=== PATIENT | female | born 1955 | race Caucasian/White ===

== ENCOUNTER 2019-08-11 07:38 | Outpatient (CLI) | payer MEDICARE, SELFPAY ==
[2019-08-11 08:20] LABS: Hematocrit 39.1 % (37.0-47.0); Hemoglobin 12.5 g/dL (12.0-15.0); Mean Corpuscular Hemoglobin 29.8 pg (26-34); Mean Corpuscular Volume 93.3 fl (80-100); Mean Platelet Volume 10.5 fl (7.4-10.4); Platelet Count Result 172 k/mm3 (150-375); Red Blood Count 4.19 M/mm3 (4.2-5.4); Red Cell Distribution Width 13.5 % (11.5-14.5); White Blood Count 5.4 K/mm3 (4.5-10.0)
[2019-08-11 08:32] LABS: Alanine Aminotransferase 22 U/L (4-35); Albumin Level 4.1 g/dL (3.5-5.1); Alkaline Phosphatase 94 U/L (38-126); Aspartate Amino Transferase 28 U/L (14-36); Bilirubin,Total 0.8 mg/dL (0.2-1.3); Blood Urea Nitrogen 18 mg/dL (7-17); Calcium 8.9 mg/dL (8.4-10.2); Carbon Dioxide 27 mmol/L (22-30); Chloride 100 mmol/L (98-107); Cholesterol 158 mg/dL (0-200); Estimated Glomerular Filt Rate > 60; Glucose 147 mg/dL (65-105); HDL Direct 40 mg/dL; Potassium 4.3 mmol/L (3.4-5.0); Sodium 141 mmol/L (137-145); Triglycerides 179 mg/dL (<150)
[2019-08-11 08:35] LABS: Hemoglobin A1C 6.9 % (<5.7)
[2019-08-11 08:45] LABS: LDL Cholesterol Direct 86 mg/dL
== END 2019-08-11 07:39 | disposition home or self-care (01) ==
PROVIDERS: PCP Family Medicine; Visit Provider Nurse Practitioner Family
DX: E78.5 Hyperlipidemia, unspecified (principal); E11.9 Type 2 diabetes mellitus without complications; I10 Essential (primary) hypertension
CPT/HCPCS: 36415; 80053; 80061; 83036; 85027

== ENCOUNTER 2019-11-24 08:23 | Outpatient (CLI) | payer MEDICARE, SELFPAY ==
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
--- NOTE | ~2019-11-24 | MM_ITS ---
EXAMINATION: MM screening [facility] BI w sharlene HISTORY: Screening mammogram TECHNIQUE: Craniocaudal and mediolateral oblique 3-D tomosynthesis images were obtained and synthetic 2-D images were generated. CAD analysis was submitted and interpreted. COMPARISON: Comparison to multiple prior studies sequentially, with oldest reviewed study dated 09/01. BREAST PARENCHYMAL COMPOSITION: The breasts are almost entirely fatty. FINDINGS: There is no evidence of suspicious mass, calcification, or architectural distortion to sugg est malignancy in either breast. There has been no suspicious interval change. IMPRESSION: 1. No mammographic evidence of malignancy. 2. Recommend routine screening mammography in one year. BI-RADS Category 1: Negative Reviewed, dictated and finalized at location A.
== END 2019-11-24 08:24 | disposition home or self-care (01) ==
LOC: ANHIMG 08:30
PROVIDERS: PCP Family Medicine; Visit Provider Nurse Practitioner Family
DX: Z12.31 Encounter for screening mammogram for malignant neoplasm of breast (principal); Z78.0 Asymptomatic menopausal state; M85.89 Other specified disorders of bone density and structure, multiple sites; M81.0 Age-related osteoporosis without current pathological fracture
CPT/HCPCS: 77063; 77067; 77080

== ENCOUNTER 2019-11-28 00:49 | Outpatient (CLI) | payer MEDICARE, SELFPAY ==
[2019-11-28 17:00] LABS: SARS-CoV-2 RNA PCR Negative
== END 2019-11-28 00:50 | disposition home or self-care (01) ==
LOC: ANHCOVIDDT 00:50
PROVIDERS: PCP Family Medicine; Visit Provider Internal Medicine Gastroenterology
DX: Z20.828 Contact with and (suspected) exposure to other viral communicable diseases (principal); Z01.812 Encounter for preprocedural laboratory examination
CPT/HCPCS: 87635; C9803; U0003

== ENCOUNTER 2019-11-30 01:09 | Day surgery (SDC) | payer MEDICARE, SELFPAY ==
[2019-11-25 14:01] VITALS: BMI 43.0
[2019-11-30 07:00] VITALS: BP 185/101; PULSE 80; RESP 20; TEMP 36.4; O2SAT 97
[2019-11-30] MEDS: LACTATED RINGERS 1,000 ML 150 ML IV CONT (07:06)
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
[2019-11-30 07:11] LABS: Glucose Point of Care 201 (65-105)
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
[2019-11-30 07:57] VITALS: BP 125/58; PULSE 69; RESP 27; O2SAT 98
[2019-11-30 08:03] VITALS: BP 136/63; PULSE 67; RESP 24; O2SAT 96
[2019-11-30 08:13] VITALS: BP 152/73; PULSE 69; RESP 18; O2SAT 97
== END 2019-11-30 08:20 | disposition home or self-care (01) ==
PROVIDERS: PCP Family Medicine; Visit Provider Internal Medicine Gastroenterology
PROC: 0DJD8ZZ Inspection of Lower Intestinal Tract, Via Natural or Artificial Opening Endoscopic (ICD-10-PCS; CPT 45378; principal; 2019-11-30 08:00)
DX: Z12.11 Encounter for screening for malignant neoplasm of colon (principal); K57.30 Diverticulosis of large intestine without perforation or abscess without bleeding; K64.8 Other hemorrhoids; I10 Essential (primary) hypertension; E78.2 Mixed hyperlipidemia; M10.9 Gout, unspecified; K76.0 Fatty (change of) liver, not elsewhere classified; Z79.84 Long term (current) use of oral hypoglycemic drugs; E66.01 Morbid (severe) obesity due to excess calories; Z68.41 Body mass index [BMI] 40.0-44.9, adult
CPT/HCPCS: G0121; J2704; J7120

== ENCOUNTER 2020-03-01 07:39 | Outpatient (CLI) | payer MEDICARE, SELFPAY ==
[2020-03-01 09:02] LABS: Hematocrit 38.8 % (37.0-47.0); Hemoglobin 12.7 g/dL (12.0-15.0); Mean Corpuscular HGB Conc 32.7 g/dl (32-36); Mean Corpuscular Hemoglobin 30.6 pg (26-34); Mean Corpuscular Volume 93.5 fl (80-100); Mean Platelet Volume 10.6 fl (7.4-10.4); Platelet Count Result 187 k/mm3 (150-375); Red Blood Count 4.15 M/mm3 (4.2-5.4); Red Cell Distribution Width 13.5 % (11.5-14.5); White Blood Count 5.8 K/mm3 (4.5-10.0)
[2020-03-01 09:11] LABS: Hemoglobin A1C 6.6 % (<5.7)
[2020-03-01 09:17] LABS: Alanine Aminotransferase 28 U/L (4-35); Albumin Level 4.3 g/dL (3.5-5.1); Alkaline Phosphatase 85 U/L (38-126); Anion Gap 8 mmol/L (8-16); Aspartate Amino Transferase 44 U/L (14-36); Blood Urea Nitrogen 21 mg/dL (7-17); Calcium 9.4 mg/dL (8.4-10.2); Carbon Dioxide 27 mmol/L (22-30); Chloride 104 mmol/L (98-107); Cholesterol 165 mg/dL (0-200); Estimated Glomerular Filt Rate > 60; Glucose 174 mg/dL (65-105); HDL Direct 37 mg/dL; Potassium 4.6 mmol/L (3.4-5.0); Sodium 139 mmol/L (137-145); Triglycerides 200 mg/dL (<150)
[2020-03-01 09:28] LABS: LDL Cholesterol Direct 87 mg/dL
== END 2020-03-01 07:40 | disposition home or self-care (01) ==
LOC: ANHLAB 07:42
PROVIDERS: PCP Family Medicine; Visit Provider Nurse Practitioner Family
DX: E78.5 Hyperlipidemia, unspecified (principal); I10 Essential (primary) hypertension; E11.9 Type 2 diabetes mellitus without complications
CPT/HCPCS: 36415; 80053; 80061; 83036; 85027

== ENCOUNTER 2020-08-17 07:02 | Outpatient (CLI) | payer MEDICARE, SELFPAY ==
[2020-08-17 07:29] LABS: Hematocrit 37.5 % (37.0-47.0); Hemoglobin 12.2 g/dL (12.0-15.0); Mean Corpuscular HGB Conc 32.5 g/dl (32-36); Mean Corpuscular Hemoglobin 31.1 pg (26-34); Mean Corpuscular Volume 95.7 fl (80-100); Mean Platelet Volume 9.8 fl (7.4-10.4); Platelet Count Result 159 k/mm3 (150-375); Red Blood Count 3.92 M/mm3 (4.2-5.4); Red Cell Distribution Width 13.2 % (11.5-14.5); White Blood Count 6.1 K/mm3 (4.5-10.0)
[2020-08-17 07:41] LABS: Potassium 4.6 mmol/L (3.4-5.0)
[2020-08-17 07:51] LABS: Alanine Aminotransferase 33 U/L (4-35); Albumin Level 4.2 g/dL (3.5-5.1); Alkaline Phosphatase 87 U/L (38-126); Anion Gap 4 mmol/L (8-16); Aspartate Amino Transferase 55 U/L (14-36); Bilirubin,Total 1.1 mg/dL (0.2-1.3); Blood Urea Nitrogen 21 mg/dL (7-17); Calcium 9.4 mg/dL (8.4-10.2); Carbon Dioxide 32 mmol/L (22-30); Chloride 103 mmol/L (98-107); Cholesterol 171 mg/dL (0-200); Estimated Glomerular Filt Rate > 60; Glucose 192 mg/dL (65-105); HDL Direct 41 mg/dL; Sodium 139 mmol/L (137-145); Triglycerides 215 mg/dL (<150)
[2020-08-17 07:53] LABS: LDL Cholesterol Direct 92 mg/dL
== END 2020-08-17 07:03 | disposition home or self-care (01) ==
PROVIDERS: PCP Family Medicine; Visit Provider Nurse Practitioner Family
DX: E11.9 Type 2 diabetes mellitus without complications (principal); E78.2 Mixed hyperlipidemia; I10 Essential (primary) hypertension
CPT/HCPCS: 36415; 80053; 80061; 83036; 85027

== ENCOUNTER 2020-11-26 08:30 | Outpatient (CLI) | payer MEDICARE, SELFPAY ==
--- NOTE | ~2020-11-26 | MM_ITS ---
EXAMINATION: MM screening [facility] BI w sharlene HISTORY: Screening mammogram TECHNIQUE: Craniocaudal and mediolateral oblique 3-D tomosynthesis images were obtained and synthetic 2-D images were generated. CAD analysis was submitted and interpreted. COMPARISON: 11/24/2019, 09/04/2017, 09/02/2016 BREAST PARENCHYMAL COMPOSITION: The breasts are almost entirely fatty. FINDINGS: There is no evidence of suspicious mass, calcification, or architectural distortion to sugg est malignancy in either breast. There has been no suspicious interval change. IMPRESSION: 1. No mammographic evidence of malignancy. 2. Recommend routine screening mammography in one year. BI-RADS Category 1: Negative Reviewed, dictated and finalized at location A.
== END 2020-11-26 08:31 | disposition home or self-care (01) ==
LOC: ANHIMG 08:32
PROVIDERS: PCP Family Medicine; Visit Provider Nurse Practitioner Family
DX: Z12.31 Encounter for screening mammogram for malignant neoplasm of breast (principal)
CPT/HCPCS: 77063; 77067

== ENCOUNTER 2021-02-22 07:14 | Outpatient (CLI) | payer MEDICARE, SELFPAY ==
[2021-02-22 08:18] LABS: Hematocrit 37.9 % (37.0-47.0); Hemoglobin 12.1 g/dL (12.0-15.0); Mean Corpuscular HGB Conc 31.9 g/dl (32-36); Mean Corpuscular Volume 97.2 fl (80-100); Mean Platelet Volume 10.5 fl (7.4-10.4); Platelet Count Result 158 k/mm3 (150-375); Red Cell Distribution Width 13.3 % (11.5-14.5); White Blood Count 5.4 K/mm3 (4.5-10.0)
[2021-02-22 08:27] LABS: Alanine Aminotransferase 53 U/L (4-35); Albumin Level 4.1 g/dL (3.5-5.1); Alkaline Phosphatase 102 U/L (38-126); Anion Gap 8 mmol/L (8-16); Aspartate Amino Transferase 74 U/L (14-36); Blood Urea Nitrogen 18 mg/dL (7-17); Calcium 9.1 mg/dL (8.4-10.2); Carbon Dioxide 27 mmol/L (22-30); Chloride 104 mmol/L (98-107); Cholesterol 168 mg/dL (0-200); Estimated Glomerular Filt Rate > 60; Glucose 189 mg/dL (65-110); HDL Direct 40 mg/dL; Potassium 4.5 mmol/L (3.4-5.0); Sodium 139 mmol/L (137-145); Triglycerides 145 mg/dL (<150)
[2021-02-22 08:38] LABS: LDL Cholesterol Direct 86 mg/dL
[2021-02-22 09:30] LABS: Hemoglobin A1C 8.2 % (<5.7)
== END 2021-02-22 07:15 | disposition home or self-care (01) ==
PROVIDERS: PCP Family Medicine; Visit Provider Nurse Practitioner Family
DX: I10 Essential (primary) hypertension (principal); E78.5 Hyperlipidemia, unspecified; E11.9 Type 2 diabetes mellitus without complications
CPT/HCPCS: 36415; 80053; 80061; 83036; 85027

== ENCOUNTER 2021-08-22 07:00 | Outpatient (CLI) | payer MEDICARE, SELFPAY ==
[2021-08-22 07:23] LABS: Basophils Percent Auto 0.7 % (0.2-1.2); Eosinophils Absolute Auto 0.3 K/mm3 (0-0.3); Hematocrit 38.7 % (37.0-47.0); Hemoglobin 12.3 g/dL (12.0-15.0); Immature Granulocyte Absolute 0.02 K/mm3 (0.00-0.031); Immature Granulocyte Percent A 0.4 % (0-0.5); Lymphocytes Absolute Auto 1.32 K/mm3 (0.9-3.2); Lymphocytes Percent Auto 23.4 % (18.3-44.2); Mean Corpuscular HGB Conc 31.8 g/dl (32-36); Mean Corpuscular Volume 97.5 fl (80-100); Mean Platelet Volume 10.5 fl (7.4-10.4); Monocytes Absolute Auto 0.5 K/mm3 (0.1-0.6); Monocytes Percent Auto 8.3 % (2.6-8.5); Neutrophils Absolute Auto 3.5 K/mm3 (1.3-6.7); Neutrophils Percent Auto 62.2 % (45.5-73.1); Platelet Count Result 158 k/mm3 (150-375); Red Blood Count 3.97 M/mm3 (4.2-5.4); Red Cell Distribution Width 13.7 % (11.5-14.5); White Blood Count 5.6 K/mm3 (4.5-10.0)
[2021-08-22 07:32] LABS: Hemoglobin A1C 8.4 % (<5.7)
[2021-08-22 07:35] LABS: Alanine Aminotransferase 44 U/L (4-35); Albumin Level 4.2 g/dL (3.5-5.1); Alkaline Phosphatase 108 U/L (38-126); Anion Gap 6 mmol/L (8-16); Aspartate Amino Transferase 70 U/L (14-36); Bilirubin,Total 1.1 mg/dL (0.2-1.3); Blood Urea Nitrogen 21 mg/dL (7-17); Calcium 8.9 mg/dL (8.4-10.2); Carbon Dioxide 29 mmol/L (22-30); Chloride 104 mmol/L (98-107); Cholesterol 176 mg/dL (0-200); Estimated Glomerular Filt Rate > 60; Glucose 226 mg/dL (65-110); HDL Direct 39 mg/dL; Potassium 5.1 mmol/L (3.4-5.0); Sodium 139 mmol/L (137-145); Triglycerides 183 mg/dL (<150)
[2021-08-22 07:46] LABS: LDL Cholesterol Direct 97 mg/dL
[2021-08-22 08:18] LABS: Vitamin D 25 Hydroxy 62.7 ng/mL
== END 2021-08-22 07:01 | disposition home or self-care (01) ==
LOC: ANHLAB 07:02
PROVIDERS: PCP Family Medicine; Visit Provider Nurse Practitioner Family
DX: E55.9 Vitamin D deficiency, unspecified (principal); I10 Essential (primary) hypertension; E78.5 Hyperlipidemia, unspecified; E11.9 Type 2 diabetes mellitus without complications
CPT/HCPCS: 36415; 80053; 80061; 82306; 83036; 84443; 85025

== ENCOUNTER 2021-11-01 11:16 | Outpatient (CLI) | payer MEDICARE, SELFPAY ==
--- NOTE | ~2021-11-01 | CT_ITS ---
EXAMINATION: CT lung screening DATE: 11/01/2021 11:36 INDICATION: Personal history of tobacco dependence TECHNIQUE: Computed tomography (CT) of the chest was performed without intravenous contrast. The dose -length product was 297.72 mGy-cm. Automated exposure control and iterative reconstruction technique were employed. COMPARISON: None FINDINGS: There is atherosclerosis of the aorta and coronary arteries. Heart size normal. No signific ant pleural or pericardial effusion. No thoracic lymphadenopathy. No endobronchial lesions. There are calcified granulomas. No focal airspace consolidation. Mild emphysema. No pneumothorax. There is a 3 mm fissural nodule on the left. Mild thoracic spondylosis. IMPRESSION: 1. Lung-RADS category 2: Benign appearance or behavior. Continue annual screening with noncontrast lo w-dose chest CT in 12 months. Reviewed, dictated and finalized at location B. IMPRESSION: 1. Lung-RADS category 2: Benign appearance or behavior. Continue annual screeni ng with noncontrast low-dose chest CT in 12 months.
== END 2021-11-01 11:17 | disposition home or self-care (01) ==
PROVIDERS: PCP Family Medicine; Visit Provider Nurse Practitioner Family
DX: Z12.2 Encounter for screening for malignant neoplasm of respiratory organs (principal); Z87.891 Personal history of nicotine dependence
CPT/HCPCS: 71271

== ENCOUNTER 2021-11-05 14:54 | Outpatient (CLI) | payer MEDICARE, SELFPAY ==
--- NOTE | ~2021-11-05 | XR_ITS ---
XR hip RT 2V w AP pelvis 11/05/2021 15:17 Indication: Right hip pain Procedure: 3 views right hip including AP pelvis Comparison: No prior studies for comparison. Findings: Pelvic rings are intact. Sacral foramen are symmetric. No fracture, subluxation or dislocat ion. No significant soft tissue abnormality. No foreign bodies are identified. Mild lumbar spondylosi s. Impression: 1: No acute bone or joint abnormality. Reviewed, dictated and finalized at location A. Impression: 1: No acute bone or joint abnormality.
== END 2021-11-05 14:55 | disposition home or self-care (01) ==
LOC: ANHIMG 15:02
PROVIDERS: PCP Family Medicine; Visit Provider Nurse Practitioner Family
DX: M25.551 Pain in right hip (principal)
CPT/HCPCS: 73502

== ENCOUNTER → 2021-12-18 08:21 | Outpatient (CLI) | payer MEDICARE, SELFPAY ==
--- NOTE | ~2021-12-18 | MR_ITS ---
EXAMINATION: MR hip RT wo con DATE: 12/18/2021 09:15 INDICATION: Right hip pain TECHNIQUE: Magnetic resonance imaging (MRI) of the right hip was performed without intravenous contr ast. Sequences included full-field axial PD-weighted FS FSE and T1-weighted FSE, coronal of the pelvi s with PD-weighted FS FSE, T2-weighted FSE and T1-weighted FSE, small field of view of the right hip with axial PD-weighted FS FSE, sagittal PD-weighted FS FSE, coronal PD-weighted FS FSE and coronal T2 weighted FSE. Additional radial T1-weighted FGR oriented orthogonal to the acetabular rim were obt ained for evaluation of the labrum. COMPARISON: Radiographs dated 11/05/2021 FINDINGS: Bones/labrum/cartilage: Alignment is normal. No fracture, avascular necrosis or pathologic marrow replacing process. There a ppears to be both anterior acetabular over coverage at both hips predisposing towards pincer-type fem oral acetabular impingement as well as mild decreased right-sided anterosuperior femoral head neck of fset which compares postoperative cam-type femoral acetabular impingement. Mild cystic change at the right anterosuperior femoral head neck junction suggestive of impingement. There is diffuse amorphous mild increased signal throughout the right acetabular labrum consistent with generation. Mild right hip osteoarthritis with mild nonuniform joint space narrowing resulting from partial thickness cartil age loss most prominent posteriorly and superiorly. Small focus of respiratory edema-like signal mauro ge at the posterior superomedial aspect of the right femoral head and at the posterior right acetabul um. Fluid: Asymmetric very small right hip joint effusion with physiologic amount fluid at the left hip. No othe r abnormal fluid collections. Soft tissues: Normal and symmetric muscle bulk and signal in the pelvis and visualized proximal thighs. The iliopso as, gluteal and proximal hamstring tendons are normal. Mild to moderate diverticulosis along the sigm oid colon without adjacent from 3 change to suggest diverticulitis. Normal appendix Limited evaluatio n of visceral organs of the pelvis is otherwise unremarkable. No pathologically enlarged pelvic/ingu inal lymphadenopathy. IMPRESSION: 1. Mild right hip osteoarthritis with small regions of high-grade chondromalacia at the humeral head and acetabulum and very small likely reactive right hip joint effusion. 2. 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 Reviewed, dictated and finalized at location A. IMPRESSION: 1. Mild right hip osteoarthritis with small regions of high-grade chondromalaci a at the humeral head and acetabulum and very small likely reactive right hip j oint effusion. 2. 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
== END ==
PROVIDERS: PCP Family Medicine; Visit Provider Nurse Practitioner Family
DX: M16.11 Unilateral primary osteoarthritis, right hip (principal)
CPT/HCPCS: 73721

== ENCOUNTER 2021-12-26 09:21 | Outpatient (CLI) | payer MEDICARE, SELFPAY ==
--- NOTE | ~2021-12-26 | MM_ITS ---
EXAMINATION: MM screening [facility] BI w sharlene HISTORY: Screening mammogram TECHNIQUE: Craniocaudal and mediolateral oblique 3-D tomosynthesis images were obtained and synthetic 2-D images were generated. CAD analysis was submitted and interpreted. COMPARISON: 11/26/2020, 11/24/2019, 09/04/2017 BREAST PARENCHYMAL COMPOSITION: The breasts are almost entirely fatty. FINDINGS: There is no suspicious mass, calcification, or architectural distortion to suggest malignan cy in either breast. There has been no suspicious interval change. IMPRESSION: 1. No mammographic evidence of malignancy. 2. Recommend routine screening mammography in one year. BI-RADS Category 1: Negative Reviewed, dictated and finalized at location A.
== END 2021-12-26 09:22 | disposition home or self-care (01) ==
PROVIDERS: PCP Family Medicine; Visit Provider Nurse Practitioner Family
DX: Z12.31 Encounter for screening mammogram for malignant neoplasm of breast (principal)
CPT/HCPCS: 77063; 77067

== ENCOUNTER 2022-01-01 10:45 | Outpatient (CLI) | payer MEDICARE, SELFPAY ==
--- NOTE | ~2022-01-01 | XR_ITS ---
EXAMINATION: XR lg joint inject/asp w image DATE: 01/01/2022 11:41 INDICATION: Right hip arthritis TECHNIQUE: A time-out was performed to verify the patient's name, date of , and procedure to b e performed. The procedure including the risks, benefits, and alternatives was discussed with the pat ient. Risks discussed included bleeding and infection. The patient understood the risks and agreed to proceed. The skin overlying the right hip joint was prepped and draped in usual sterile fashion. A nesthetic was administered with 1% lidocaine subcutaneously. A 20 G needle was advanced under fluoro scopic guidance into the joint. Injection of a small amount of gas confirmed intra-articular positio n of the needle. Subsequently, injectate consisting of 3 mL of a 2:1 mixture of 0.5% Marcaine and 80 mg/mL Depo-Medrol for a total dosage of 80 mg Depo-Medrol was instilled. Washout of contrast was see n confirming intra-articular administration. The needle was removed and the entry site was cleaned an d dressed. There were no immediate complications. Fluoroscopy exposure time was 0.1 minutes. The tot al number of images was 1. FINDINGS: Real-time fluoroscopy demonstrates the needle in the right hip joint. Patient's pain prior to procedure:02/22. Patient's pain following the procedure: 07/25. IMPRESSION: 1. Successful right hip joint injection of local anesthetic and steroid with decrease in the patient' s presenting pain. Reviewed, dictated and finalized at location A. IMPRESSION: 1. Successful right hip joint injection of local anesthetic and steroid with de crease in the patient's presenting pain.
== END 2022-01-01 10:46 | disposition home or self-care (01) ==
PROVIDERS: PCP Family Medicine; Visit Provider Nurse Practitioner Family
DX: M25.551 Pain in right hip (principal)
CPT/HCPCS: 20610; 77002; J1040

== ENCOUNTER 2022-03-03 14:55 | Outpatient (CLI) | payer MEDICARE, SELFPAY ==
--- NOTE | ~2022-03-03 | DEXA_ITS ---
Bone Density Report Name: ONELIA RAMOS Age: 66 Sex: Female Ethnicity: White Date of : 1955 Indication: monitoring treatment; height loss; postmenopausal Referring Provider: HENRY STONE Study: Bone densitometry was performed. Exam Date: March 03, 2022 Accession number: [id number] Bone Density: Region BMD T-score Z-score Classification AP Spine(L1-L4) 1.190 1.3 3.2 Normal Femoral Neck (Left) 0.729 -1.1 0.6 Osteopenia Total Hip (Left) 0.948 0.0 1.4 Normal Femoral Neck (Right) 0.758 -0.8 0.8 Normal Total Hip (Right) 0.944 0.0 1.4 Normal Total Hip Mean 0.946 0.0 1.4 Normal World Health Organization criteria for BMD impression classify patients as: Normal (T-score at or above -1.0), Osteopenia (T-score between -1.0 and -2.5), or Osteoporosis (T-score at or below -2.5). 10-year Fracture Risk: FRAX not reported because: Treated for osteoporosis Previous Exams: Region Exam Age BMD T-score BMD Change BMD Change Date g/cm2 vs Baseline vs Previous AP Spine (L1-L4) 03/03/2022 66 1.190 1.3 0.072 (6.5%)* 0.072 (6.5%)* 11/24/2019 64 1.118 0.6 Total Hip(Left) 03/03/2022 66 0.948 0.0 0.046 (5.1%)* 0.046 (5.1%)* 11/24/2019 64 0.902 -0.3 Total Hip(Right) 03/03/2022 66 0.944 0.0 0.023 (2.5%) 0.023 (2.5%) 11/24/2019 64 0.921 -0.2 *Denotes significance at 95% confidence level, LSC for AP Spine = 0.022 g/cm2, LSC for Total Hip = 0.027 g/cm2 Clinical Information Provided by Patient: Is being treated for osteoporosis Has used the following medications: Fosamax (i.e. alendronate), Calcium Patient maximum height was 64 Menopause Age: 41 No regular weight bearing exercise Drinks caffeinated beverages Onset of menses at age 10 Number of children 0 Impression: The patient has low bone mass, based on the Left Femoral Neck T-score. No significant bone loss was observed. Discussion: PATIENT UNDER TREATMENT WITH NO SIGNIFICANT BMD LOSS SINCE LAST EXAM. In an untreated patient, BMD typically declines with age. A lack of decline or gain is usually a sign that treatment is efficacious and fracture risk is reduced. It is important to ask patients whether they are taking their medications and to encourage continued and appropriate compliance with their osteoporosis therapies to reduce fracture risk. It is also important to review their risk factors and encourage appropriate calcium and vitamin D intakes, exercise
== END 2022-03-03 14:56 | disposition home or self-care (01) ==
PROVIDERS: PCP Family Medicine; Visit Provider Nurse Practitioner Family
DX: Z78.0 Asymptomatic menopausal state (principal); M85.852 Other specified disorders of bone density and structure, left thigh
CPT/HCPCS: 77080

== ENCOUNTER 2022-03-05 07:52 | Outpatient (CLI) | payer MEDICARE, SELFPAY ==
[2022-03-05 08:24] LABS: Basophils Absolute Auto 0.1 K/mm3 (0.0-0.1); Basophils Percent Auto 0.9 % (0.2-1.2); Eosinophils Absolute Auto 0.3 K/mm3 (0-0.3); Eosinophils Percent Auto 4.3 % (0-4.4); Hematocrit 36.1 % (37.0-47.0); Hemoglobin 11.6 g/dL (12.0-15.0); Immature Granulocyte Absolute 0.05 K/mm3 (0.00-0.031); Immature Granulocyte Percent A 0.9 % (0-0.5); Lymphocytes Absolute Auto 1.28 K/mm3 (0.9-3.2); Lymphocytes Percent Auto 22.1 % (18.3-44.2); Mean Corpuscular HGB Conc 32.1 g/dl (32-36); Mean Corpuscular Hemoglobin 31.4 pg (26-34); Mean Corpuscular Volume 97.8 fl (80-100); Mean Platelet Volume 10.2 fl (7.4-10.4); Monocytes Absolute Auto 0.4 K/mm3 (0.1-0.6); Monocytes Percent Auto 7.4 % (2.6-8.5); Neutrophils Absolute Auto 3.7 K/mm3 (1.3-6.7); Neutrophils Percent Auto 64.4 % (45.5-73.1); Platelet Count Result 161 k/mm3 (150-375); Red Blood Count 3.69 M/mm3 (4.2-5.4); Red Cell Distribution Width 13.6 % (11.5-14.5); White Blood Count 5.8 K/mm3 (4.5-10.0)
[2022-03-05 08:33] LABS: Alanine Aminotransferase 29 U/L (6-35); Alkaline Phosphatase 103 U/L (38-126); Anion Gap 11 mmol/L (8-16); Aspartate Amino Transferase 46 U/L (14-36); Bilirubin,Total 1.4 mg/dL (0.2-1.3); Blood Urea Nitrogen 19 mg/dL (7-17); Carbon Dioxide 24 mmol/L (22-30); Chloride 105 mmol/L (98-107); Cholesterol 154 mg/dL (0-200); Estimated Glomerular Filt Rate 55; Glucose 201 mg/dL (65-110); HDL Direct 36 mg/dL; Potassium 4.9 mmol/L (3.4-5.0); Sodium 140 mmol/L (137-145); Triglycerides 169 mg/dL (<150)
[2022-03-05 08:35] LABS: Hemoglobin A1C 7.2 % (<5.7)
[2022-03-05 08:44] LABS: LDL Cholesterol Direct 92 mg/dL
[2022-03-05 09:20] LABS: Creatinine Urine 110.8 mg/dL
[2022-03-05 09:29] LABS: MALB Creatinine Ratio 22.6 mg/g (0-30)
== END 2022-03-05 07:53 | disposition home or self-care (01) ==
PROVIDERS: PCP Family Medicine; Visit Provider Nurse Practitioner Family
DX: E78.5 Hyperlipidemia, unspecified (principal); E03.9 Hypothyroidism, unspecified; E11.9 Type 2 diabetes mellitus without complications; I10 Essential (primary) hypertension
CPT/HCPCS: 36415; 80053; 80061; 82043; 83036; 84443; 85025

== ENCOUNTER 2022-08-28 07:25 | Outpatient (CLI) | payer MEDICARE, SELFPAY ==
[2022-08-28 07:42] LABS: Basophils Percent Auto 0.7 % (0.2-1.2); Eosinophils Absolute Auto 0.4 K/mm3 (0-0.3); Eosinophils Percent Auto 6.4 % (0-4.4); Hematocrit 35.1 % (37.0-47.0); Hemoglobin 11.8 g/dL (12.0-15.0); Immature Granulocyte Absolute 0.02 K/mm3 (0.00-0.031); Immature Granulocyte Percent A 0.4 % (0-0.5); Lymphocytes Absolute Auto 1.35 K/mm3 (0.9-3.2); Mean Corpuscular HGB Conc 33.6 g/dl (32-36); Mean Corpuscular Hemoglobin 31.3 pg (26-34); Mean Corpuscular Volume 93.1 fl (80-100); Mean Platelet Volume 9.9 fl (7.4-10.4); Monocytes Absolute Auto 0.5 K/mm3 (0.1-0.6); Monocytes Percent Auto 8.2 % (2.6-8.5); Neutrophils Absolute Auto 3.4 K/mm3 (1.3-6.7); Neutrophils Percent Auto 60.3 % (45.5-73.1); Platelet Count Result 161 k/mm3 (150-375); Red Blood Count 3.77 M/mm3 (4.2-5.4); Red Cell Distribution Width 13.8 % (11.5-14.5); White Blood Count 5.6 K/mm3 (4.5-10.0)
[2022-08-28 07:52] LABS: Alanine Aminotransferase 22 U/L (6-35); Albumin Level 4.2 g/dL (3.5-5.1); Alkaline Phosphatase 98 U/L (38-126); Anion Gap 6 mmol/L (8-16); Aspartate Amino Transferase 35 U/L (14-36); Bilirubin,Total 1.1 mg/dL (0.2-1.3); Blood Urea Nitrogen 22 mg/dL (7-17); Calcium 9.3 mg/dL (8.4-10.2); Carbon Dioxide 28 mmol/L (22-30); Chloride 105 mmol/L (98-107); Cholesterol 155 mg/dL (0-200); Estimated Glomerular Filt Rate > 60; Glucose 168 mg/dL (65-110); HDL Direct 34 mg/dL; Potassium 4.8 mmol/L (3.4-5.0); Sodium 139 mmol/L (137-145); Triglycerides 157 mg/dL (<150)
[2022-08-28 08:02] LABS: LDL Cholesterol Direct 87 mg/dL
[2022-08-28 08:47] LABS: Hemoglobin A1C 6.8 % (<5.7)
[2022-08-28 08:49] LABS: Creatinine Urine 78.1 mg/dL
[2022-08-28 08:54] LABS: MALB Creatinine Ratio 12.5 mg/g (0-30); Microalbumin Urine Random 9.8 mg/L (0-16.7)
== END 2022-08-28 07:26 | disposition home or self-care (01) ==
PROVIDERS: PCP Family Medicine; Visit Provider Nurse Practitioner Family
DX: I10 Essential (primary) hypertension (principal); E11.9 Type 2 diabetes mellitus without complications; E78.5 Hyperlipidemia, unspecified; E03.9 Hypothyroidism, unspecified; E55.9 Vitamin D deficiency, unspecified
CPT/HCPCS: 36415; 80053; 80061; 82043; 82306; 83036; 84443; 85025

== ENCOUNTER 2023-03-13 13:31 | Outpatient (CLI) | payer MEDICARE, SELFPAY ==
--- NOTE | ~2023-03-13 | MM_ITS ---
EXAMINATION: MM screening [facility] BI w sharlene HISTORY: Screening mammogram TECHNIQUE: Craniocaudal and mediolateral oblique 3-D tomosynthesis images were obtained and synthetic 2-D images were generated. CAD analysis was submitted and interpreted. COMPARISON: 12/26/2021, 11/26/2020, 11/24/2019 bilateral screening mammogram examinations BREAST PARENCHYMAL COMPOSITION: The breasts are almost entirely fatty. FINDINGS: There is no evidence of suspicious mass, calcification, or architectural distortion to sugg est malignancy in either breast. There has been no suspicious interval change. IMPRESSION: 1. No mammographic evidence of malignancy. 2. Recommend routine screening mammography in one year. BI-RADS Category 1: Negative Reviewed, dictated and finalized at location A.
== END 2023-03-13 13:32 | disposition home or self-care (01) ==
LOC: ANHIMG 13:34
PROVIDERS: PCP Family Medicine; Visit Provider Nurse Practitioner Family
DX: Z12.31 Encounter for screening mammogram for malignant neoplasm of breast (principal)
CPT/HCPCS: 77063; 77067

== ENCOUNTER 2023-04-20 15:04 | Outpatient (CLI) | payer MEDICARE, SELFPAY ==
--- NOTE | 2023-04-20 16:35 | ECG_ITS ---
Measurements Intervals [place] Rate: 86 P: IN: 0 QRS: -15 QRSD: 89 T: 41 QT: 358 QTc: 429 Interpretive Statements ATRIAL FIBRILLATION ABNORMAL ECG NO PREVIOUS ECG AVAILABLE FOR COMPARISON Electronically Signed On 04-20-2023 16:49:34 OPERATIONS PROGRAM MANAGER by Rolando Blanchard D.O.
[2023-04-20 17:03] LABS: Basophils Absolute Auto 0.1 K/mm3 (0.0-0.1); Basophils Percent Auto 0.9 % (0.2-1.2); Eosinophils Absolute Auto 0.9 K/mm3 (0-0.3); Eosinophils Percent Auto 13.7 % (0-4.4); Hematocrit 37.1 % (37.0-47.0); Hemoglobin 11.7 g/dL (12.0-15.0); Immature Granulocyte Absolute 0.02 K/mm3 (0.00-0.031); Immature Granulocyte Percent A 0.3 % (0-0.5); Lymphocytes Absolute Auto 1.34 K/mm3 (0.9-3.2); Lymphocytes Percent Auto 20.2 % (18.3-44.2); Mean Corpuscular HGB Conc 31.5 g/dl (32-36); Mean Corpuscular Volume 98.4 fl (80-100); Mean Platelet Volume 10.7 fl (7.4-10.4); Monocytes Absolute Auto 0.6 K/mm3 (0.1-0.6); Monocytes Percent Auto 8.3 % (2.6-8.5); Neutrophils Absolute Auto 3.7 K/mm3 (1.3-6.7); Neutrophils Percent Auto 56.6 % (45.5-73.1); Platelet Count Result 168 k/mm3 (150-375); Red Blood Count 3.77 M/mm3 (4.2-5.4); Red Cell Distribution Width 14.5 % (11.5-14.5); White Blood Count 6.6 K/mm3 (4.5-10.0)
[2023-04-20 17:18] LABS: Anion Gap 8 mmol/L (8-16); Blood Urea Nitrogen 27 mg/dL (7-17); Calcium 9.5 mg/dL (8.4-10.2); Carbon Dioxide 26 mmol/L (22-30); Chloride 105 mmol/L (98-107); Estimated Glomerular Filt Rate 55; Glucose 147 mg/dL (65-110); Potassium 4.6 mmol/L (3.4-5.0); Sodium 139 mmol/L (137-145)
[2023-04-20 17:29] LABS: Appearance Urine Clear (Clear); Bacteria Urine None Seen /hpf; Bilirubin Urine Negative (Negative); Blood Urine Negative (Negative); Color Urine Yellow (Yellow); Glucose Urine UA Negative (Negative); Ketones Urine Negative (Negative); Leukocyte Esterase Ur 2+ LEU/UL (Negative); Need Manual Microscopic Reviewed; Nitrate Urine Negative (Negative); Non Pathogenic Casts 0-2; Protein Urine Negative (Negative); Squamous Epithelial Cell Urine None seen /hpf (Few); pH Urine 5.5 (5.0-9.0)
[2023-04-20 17:30] LABS: Add Urine Microscopic? YES
[2023-04-20 22:39] LABS: Hemoglobin A1C 6.9 % (<5.7)
== END 2023-04-20 15:05 | disposition home or self-care (01) ==
PROVIDERS: PCP Family Medicine; Visit Provider Nurse Practitioner Family
DX: E11.9 Type 2 diabetes mellitus without complications (principal); E78.2 Mixed hyperlipidemia; I10 Essential (primary) hypertension; M1A.9XX0 Chronic gout, unspecified, without tophus (tophi); M81.0 Age-related osteoporosis without current pathological fracture; R53.83 Other fatigue; M16.9 Osteoarthritis of hip, unspecified; K76.0 Fatty (change of) liver, not elsewhere classified
CPT/HCPCS: 36415; 80048; 81001; 83036; 85025; 87086; 87088; 93005

== ENCOUNTER 2023-07-01 09:50 | Outpatient (CLI) | payer MEDICARE, SELFPAY ==
[2023-07-01 11:08] LABS: Basophils Absolute Auto 0.1 K/mm3 (0.0-0.1); Basophils Percent Auto 0.8 % (0.2-1.2); Eosinophils Absolute Auto 0.6 K/mm3 (0-0.3); Eosinophils Percent Auto 7.9 % (0-4.4); Hematocrit 39.2 % (37.0-47.0); Immature Granulocyte Absolute 0.03 K/mm3 (0.00-0.031); Immature Granulocyte Percent A 0.4 % (0-0.5); Lymphocytes Absolute Auto 1.25 K/mm3 (0.9-3.2); Lymphocytes Percent Auto 17.3 % (18.3-44.2); Mean Corpuscular HGB Conc 30.6 g/dl (32-36); Mean Platelet Volume 9.9 fl (7.4-10.4); Monocytes Absolute Auto 0.5 K/mm3 (0.1-0.6); Monocytes Percent Auto 6.8 % (2.6-8.5); Neutrophils Absolute Auto 4.8 K/mm3 (1.3-6.7); Neutrophils Percent Auto 66.8 % (45.5-73.1); Platelet Count Result 191 k/mm3 (150-375); White Blood Count 7.2 K/mm3 (4.5-10.0)
[2023-07-01 11:13] LABS: Appearance Urine Clear (Clear); Bacteria Urine None Seen /hpf; Bilirubin Urine Negative (Negative); Blood Urine Negative (Negative); Color Urine Yellow (Yellow); Glucose Urine UA Negative (Negative); Ketones Urine Negative (Negative); Leukocyte Esterase Ur Trace LEU/UL (Negative); Nitrate Urine Negative (Negative); Non Pathogenic Casts 0-2; Protein Urine Negative (Negative); RBC Urine 0-2 /hpf (0-2); Specific Grav Ur 1.008 (1.001-1.035); Squamous Epithelial Cell Urine None seen /hpf (Few); WBC Urine 0-5 /hpf; pH Urine 5.5 (5.0-9.0)
[2023-07-01 11:19] LABS: Urine Cotinine NEGATIVE
[2023-07-01 11:21] LABS: Add Urine Microscopic? YES
[2023-07-01 11:27] LABS: INR 1.4
[2023-07-01 11:28] LABS: Partial Thromboplastin Time 59.3 SECONDS (22.3-36.8)
[2023-07-01 11:29] LABS: Albumin Level 4.7 g/dL (3.5-5.1); Anion Gap 9 mmol/L (8-16); Blood Urea Nitrogen 20 mg/dL (7-17); Calcium 9.8 mg/dL (8.4-10.2); Carbon Dioxide 29 mmol/L (22-30); Chloride 102 mmol/L (98-107); Estimated Glomerular Filt Rate > 60; Glucose 104 mg/dL (65-110); Potassium 4.5 mmol/L (3.4-5.0); Sodium 140 mmol/L (137-145)
[2023-07-01 12:35] LABS: MRSA (PCR) NOT DETECTED (NOT DETECTE)
== END 2023-07-01 09:51 | disposition home or self-care (01) ==
LOC: ANHSURGERY 09:53
PROVIDERS: PCP Family Medicine; Visit Provider Orthopaedic Surgery
DX: Z01.818 Encounter for other preprocedural examination (principal); M16.9 Osteoarthritis of hip, unspecified
CPT/HCPCS: 80048; 80307; 81001; 82040; 85025; 85610; 85730; 87641

== ENCOUNTER 2023-07-15 00:41 | Day surgery (SDC) | payer MEDICARE, SELFPAY ==
--- NOTE | 2023-07-01 09:37 | PC.NURSE ---
Addendum entered by Norma Napier RN 07/01/23 10:51: PT AWARE SHE CAN USE HER INHALER DOS IF NEEDED Original Note: PRE-OP INSTRUCTIONS, PLEASE READ CAREFULLY Report to the Outpatient Waiting Room, entrance under the green pavilion located off [facility], at time _0600_ on date _07/15/23_. Planned Procedure Time: _0730_. PACK A SMALL OVERNIGHT BAG AND LEAVE IN THE CAR ALONG WITH YOUR WALKER Time changes happen often and if your time is changed the preop area will call you the afternoon before. - You and your visitor will be asked to self-screen and do not enter if you have any COVID symptoms. - A mask is optional within the hospital at this time. -VISITING HOURS 8AM-8PM Patients may have clear liquids (water, carbonated beverages, clear teas, apple juice) until 3 hours prior to surgery (0430 AM) with a maximum of 20 ounces. - No food from midnight until time of surgery Take the following medications with a SIP of water the morning of surgery: _ATENOLOL, & TYLENOL IF NEEDED_ DO NOT STOP ANY OF YOUR OTHER PRESCRIPTION MEDICATIONS PRIOR TO SURGERY ?EXCEPT THE FOLLOWING Medications to discontinue per DR. NUNEZ - _MELOXICAM, XARELTO (RIVAROXABAN) INSTRUCTED, Date to take last dose CALL DR. NUNEZ'S OFFICE FOR INSTRUCTIONS _ Medications to discontinue per ANESTHESIA - _MULTIVITAMIN & SUPPLEMENTS 3 DAYS PRIOR TO SURGERY, Date to take last dose 07/11/23_ Please no make-up, nail italian, hairspray, perfume, deodorant, or body powder the day of surgery. No jewelry (including any body piercings) or valuables the day of surgery, leave them at home. Please take a shower or bath the night before, or the morning of, surgery with an antibacterial soap. Wear comfortable, loose fitting clothing. - Jewelry must be removed prior to entering the operating room. Rings and piercings that are not removed may be cut off. - The hospital will not accept responsibility for valuables. - Please leave all valuables, including medications, at home the day of surgery. If you are going home after surgery, a licensed shuttle bus driver must drive you home. - NO public transportation without another adult if you receive anesthesia. - We recommend that an adult stay with you for 24 hours following discharge. - We also recommend that you do not drive, make important decision, drink alcoholic beverages, or take any drugs that were not prescribed by your health care provider for at least 24 hours after your discharge time. Follow any additional instructions given to you from your surgeon. If you or anyone in your household have experienced Covid symptoms in the past week, please notify your surgeon or the nurse liaison at the phone number below for possible testing. Instructions given to _PATIENT_and asked if any additional questions and then verbalized understanding. Patient advised to call surgeon office or pre surgery nurse liaison [phone] if any additional questions.
[2023-07-01 10:08] VITALS: BP 176/72; PULSE 80; RESP 20; TEMP 36.7; O2SAT 100; BMI 38.2
[2023-07-15] VITALS (14 sets, daily range): BP systolic 96–153; BP diastolic 60–99; PULSE 80–110; RESP 10–20; TEMP 36.1–36.9; O2SAT 97–100
--- NOTE | ~2023-07-15 | XR_ITS ---
EXAMINATION: XR hip RT 1V DATE: 07/15/2023 10:55 INDICATION: Total right hip arthroplasty. Postop. TECHNIQUE: A single view of right hip was obtained. COMPARISON: Right hip radiographs 04/20/2023 FINDINGS: There is a total right hip arthroplasty in near-anatomic alignment. No fracture. There is g as in the soft tissues around right hip, consistent with recent surgery. IMPRESSION: 1. Total right hip arthroplasty in near-anatomic alignment. Reviewed, dictated and finalized at location A. RE ADMINISTRATOR
[2023-07-15] MEDS: LACTATED RINGERS 1,000 ML 30 ML IV CONT ×2 (06:30→10:38)
[2023-07-15 06:56] LABS: Glucose Point of Care 160 mg/dl (65-105)
[2023-07-15] MEDS: ACETAMINOPHEN 500 MG TABLET 1000 MG PO (07:00)
[2023-07-15] MEDS: TRANEXAMIC ACID 1,000MG/ISO100 1,000 MG/100 ML BAG 200 MG IVPB (07:00)
--- NOTE | 2023-07-15 07:17 | WPDHPUPDATE1 ---
History and Physical Update Update Date/Time: 07/15/23 07:17 History and Physical has been reviewed, including an updated exam of the patient. There are NO changes in the patient's condition. Risks, benefits, and alternatives have been discussed and questions answered. Patient agrees to proceed with procedure.
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
[2023-07-15 07:24] LABS: INR 1.1; Prothrombin Time 14.4 Seconds (11.1-14.7)
[2023-07-15 07:38] LABS: Partial Thromboplastin Time 44.5 SECONDS (22.3-36.8)
[2023-07-15] MEDS: ceFAZolin 2 GM/D5W 50 ML 2 GM/50 ML BAG IVPB ×2 (07:46→17:38)
[2023-07-15] MEDS: TRANEXAMIC ACID 1,000 MG/10 ML AMPUL 1000 MG IV PUSH (09:49)
--- NOTE | 2023-07-15 10:38 | W.PM.PROC2 ---
Procedure Note - Detailed Date of Procedure 07/15/23 Pre-op Diagnosis right hip OA Post-op Diagnosis Same Procedure Performed R MONIQUE Surgeon Thomas Briseno MD Anesthesia General Description of Procedure THE PATIENT WAS TAKEN TO THE OPERATING ROOM IN STABLE CONDITION AND WAS PLACED IN THE LATERAL DECUBITUS AND THE RIGHT LOWER EXTREMITY WAS PREPPED AND DRAPED IN THE STERILE FASHION. INCISION WAS MADE IN THE POSTERIOR LATERAL SIDE OF THE HIP, DOWN TO THE FASCIA LAYER. THE FASCIA WAS INCISED. THE HIP WAS EXPOSED. THE SHORT EXTERNAL ROTATORS WERE EXPOSED. THE SCIATIC NERVE WAS IDENTIFIED. INCISION WAS MADE THROUGH THE SHORT EXTERNAL ROTATORS AND THE CAPSULE OF THE HIP JOINT. THE HIP WAS DISLOCATED. AN OSTEOTOMY WAS MADE TO THE FEMORAL NECK ABOUT 1 CM PROXIMAL TO THE LESSER TROCHANTER. THE ACETABULUM WAS EXPOSED. THERE WAS SEVERE DJD SEEN. BEGINNING WITH A 44 REAMER THE ACETABULUM WAS REAMED TO 49 MM. A 49 MM TRIAL WAS PLACED IN 35 DEG OF ABDUCTION AND ANTEVERSION WAS IN ALIGNMENT WITH THE TRANS ACETABULAR LIGAMENT. THE FIT WAS EXCELLENT. THE TRIAL WAS REMOVED. A 50 MM BIOMET G7 COMPONENT WAS THEN TAPPED IN TO PLACE IN 35 DEG OF ABDUCTION AND ANTEVERSION IN ALIGNMENT WITH THE TRANSVERSE ACETABULAR LIGAMENT. THE FIT WAS EXCELLENT. 1 ACETABULAR SCREW WAS PLACED. THE ACETABULAR LINER WAS PLACED AND CHECKED FOR STABILITY. NEXT THE FEMUR WAS PREPARED WITH INITIAL CANAL FINDER THEN SEQUENTIAL BROACHING WITH A TAPERLOC HIP SYSTEM, UNTIL AN 8 BROACH FIT WELL IN 15 OF ANTEVERSION. A 0 HIGH OFFSET NECK WITH 36 MM HEAD TRIAL WAS PLACED. THE SHUCK TEST WAS EXCELLENT AND THE STABILITY IN FLEXION AND ROTATION WAS EXCELLENT. LEG LENGTHS WERE GROSSLY EQUAL. TRIALS WERE REMOVED. A BIOMET TAPERLOC 8 STEM WAS PLACED WITH A HIGH OFFSET NECK. THE FIT WAS EXCELLENT IN 15 DEG OF ANTEVERSION. A 0 CERAMIC 36 MM FEMORAL HEAD WAS PLACED. THE HIP WAS TRIALED AND THE STABILITY WAS EXCELLENT WERE THE LEG LENGTHS AND THE SHUCK TEST. THE WOUND WAS IRRIGATED WITH STERILE BETADINE AND WATER FOR 3 MIN. THEN WASHED AGAIN. THE CAPSULE AND THE EXTERNAL ROTATORS WERE APPROXIMATED WITH NUMBER 1 VICRYL. THE FASCIA WITH No 2 QUIL AND THE SUB CUTANEOUS LAYER WITH 2-0 ABSORBABLE SUTURE WITH A RUNNING 3-0 SUBCUTICULAR LAYER WELL. DERMABOND WAS PLACED AND STERILE DRESSING WAS APPLIED. PATIENT WAS PLACED BACK ON TO THE SUPINE POSITION AND WAS EXTUBATED Estimated Blood Loss 500 Complications No immediate complications Condition Stable Disposition PACU
[2023-07-15 10:45] LABS: Glucose Point of Care 168 mg/dl (65-105)
[2023-07-15] MEDS: ONDANSETRON INJ 4 MG/2 ML VIAL IV PUSH ×2 (11:23→12:52)
[2023-07-15] MEDS: diphenhydrAMINE HCl INJ 50 MG/ML VIAL 6.25 MG IV PUSH (11:52)
--- NOTE | 2023-07-15 12:05 | ADMGEN ---
This patient, Mildred Ortiz, was admitted to Medical Room 344-01. Patient/family oriented to hospital policies and general routines including ID bracelet, bed and alarms, visiting hours, pain management, procedures, bathroom and other care routines, personal items, smoking policy, room service/diet, and visiting hours. Information on how to activate the Rapid Response Team has been discussed. Patient/Family are encouraged to report perceived risks to care and to ask questions if they do not understand what they are told or what they should do.
[2023-07-15 12:39] LABS: Hematocrit 33.9 % (37.0-47.0); Hemoglobin 10.8 g/dL (12.0-15.0)
[2023-07-15 12:51] LABS: Glucose Point of Care 205 mg/dl (65-105)
[2023-07-15] MEDS: MELOXICAM 7.5 MG TABLET PO (13:04)
[2023-07-15] MEDS: metFORMIN HCL 500 MG TABLET PO ×2 (13:04→17:35)
[2023-07-15] MEDS: MAGNESIUM OXIDE 400 MG TABLET PO (13:04)
[2023-07-15] MEDS: FAMOTIDINE 20 MG TABLET PO ×2 (13:05→21:13)
[2023-07-15] MEDS: FERROUS SULFATE 325 MG TABLET DR BY MOUTH (13:05)
[2023-07-15] MEDS: polyethylene glycoL 3350 17 GM POWD.PACK PO (13:05)
[2023-07-15] MEDS: allopurinoL 100 MG TABLET PO (13:05)
[2023-07-15] MEDS: SENNA/DOCUSATE SODIUM TABLET 2 TAB PO ×2 (13:05→17:35)
[2023-07-15] MEDS: SODIUM CHLORIDE 0.9% IV 1,000 ML 125 ML IV CONT (13:10)
[2023-07-15] MEDS: glipiZIDE XL 5 MG TABCR 10 MG PO ×2 (13:15→17:36)
[2023-07-15] MEDS: ACETAMINOPHEN 325 MG TABLET 650 MG PO (17:35)
[2023-07-15 17:55] LABS: Glucose Point of Care 239 mg/dl (65-105)
[2023-07-15] MEDS: SIMVASTATIN 20 MG TABLET 40 MG PO (21:13)
[2023-07-15 23:43] LABS: Glucose Point of Care 262 mg/dl (65-105)
[2023-07-16] MEDS: ceFAZolin 2 GM/D5W 50 ML 2 GM/50 ML BAG IVPB ×2 (00:01→09:54)
[2023-07-16] MEDS: ACETAMINOPHEN 325 MG TABLET 650 MG PO (00:01)
[2023-07-16 00:13] VITALS: BP 121/55; PULSE 100; RESP 20; TEMP 36.9; O2SAT 100
[2023-07-16] MEDS: HYDROcodone/acetaminophen (*CRX) 7.5-325 MG TABLET 1 TAB PO ×3 (03:24→14:35)
[2023-07-16 05:39] VITALS: BP 135/57; PULSE 81; RESP 18; TEMP 36.2; O2SAT 96
[2023-07-16 06:52] LABS: Basophils Percent Auto 0.3 % (0.2-1.2); Eosinophils Percent Auto 0.1 % (0-4.4); Hematocrit 27.5 % (37.0-47.0); Hemoglobin 8.5 g/dL (12.0-15.0); Immature Granulocyte Absolute 0.06 K/mm3 (0.00-0.031); Immature Granulocyte Percent A 0.6 % (0-0.5); Lymphocytes Absolute Auto 0.99 K/mm3 (0.9-3.2); Lymphocytes Percent Auto 9.1 % (18.3-44.2); Mean Corpuscular HGB Conc 30.9 g/dl (32-36); Mean Corpuscular Hemoglobin 29.9 pg (26-34); Mean Corpuscular Volume 96.8 fl (80-100); Mean Platelet Volume 10.2 fl (7.4-10.4); Monocytes Absolute Auto 0.7 K/mm3 (0.1-0.6); Monocytes Percent Auto 6.7 % (2.6-8.5); Neutrophils Percent Auto 83.2 % (45.5-73.1); Platelet Count Result 123 k/mm3 (150-375); Red Blood Count 2.84 M/mm3 (4.2-5.4); Red Cell Distribution Width 13.6 % (11.5-14.5); White Blood Count 10.8 K/mm3 (4.5-10.0)
[2023-07-16 07:11] LABS: Anion Gap 9 mmol/L (8-16); Blood Urea Nitrogen 27 mg/dL (7-17); Calcium 7.8 mg/dL (8.4-10.2); Carbon Dioxide 23 mmol/L (22-30); Chloride 104 mmol/L (98-107); Estimated CRCL calculation 44 ml/min; Estimated Glomerular Filt Rate 45; Glucose 171 mg/dL (65-110); Potassium 4.5 mmol/L (3.4-5.0); Sodium 136 mmol/L (137-145)
--- NOTE | 2023-07-16 07:48 | WPDANESPN ---
Anes - Prog Note Post-Op Date/Time: 07/16/23 07:48 Cardiovascular status: normal Respiratory status: normal Airway patency: baseline Mental status: baseline Post-Op hydration status: normal Vital Signs: Last Vital Signs Temp 98.5 F 07/16/23 00:13 Pulse 100 07/16/23 00:13 Resp 20 07/16/23 00:13 BP 121/55 L 07/16/23 00:13 Pulse Ox 100 07/16/23 00:13 O2 Del Method Room Air 07/15/23 14:08 O2 Flow Rate 8 07/15/23 10:55 Pain Score (VAS): 0/10 I/O: Intake & Output 07/15/23 07/15/23 07/16/23 15:59 23:59 07:59 Intake Total 250 1290 50 Balance 250 1290 50 Laboratory Tests 07/16/23 06:38 07/16/23 06:38 07/15/23 07/15/23 07/15/23 10:42 12:32 12:47 WBC RBC Hgb 10.8 L Hct 33.9 L MCV MCH MCHC RDW Plt Count MPV Immature Gran % (Auto) Neut % (Auto) Lymph % (Auto) [place] % (Auto) Eos % (Auto) Baso % (Auto) Lymph # (Auto) [place] # (Auto) Eos # (Auto) Baso # (Auto) Abs Immat Gran (auto) Absolute Neuts (auto) Absolute Nucleated RBC Nucleated RBC % Sodium Potassium Chloride Carbon Dioxide Anion Gap BUN Creatinine Estim Creat Clear Calc Estimated GFR Glucose POC Capillary Glucose 168 H 205 H Calcium 07/15/23 07/15/23 07/16/23 17:43 20:20 06:38 WBC 10.8 H RBC 2.84 L Hgb 8.5 L Hct 27.5 L MCV 96.8 MCH 29.9 MCHC 30.9 L RDW 13.6 Plt Count 123 L MPV 10.2 Immature Gran % (Auto) 0.6 H Neut % (Auto) 83.2 H Lymph % (Auto) 9.1 L [place] % (Auto) 6.7 Eos % (Auto) 0.1 Baso % (Auto) 0.3 Lymph # (Auto) 0.99 [place] # (Auto) 0.7 H Eos # (Auto) 0.0 Baso # (Auto) 0.0 Abs Immat Gran (auto) 0.06 H Absolute Neuts (auto) 9.0 H Absolute Nucleated RBC 0.0 Nucleated RBC % 0.0 Sodium 136 L Potassium 4.5 Chloride 104 Carbon Dioxide 23 Anion Gap 9 BUN 27 H Creatinine 1.20 H Estim Creat Clear Calc 44 Estimated GFR 45 L Glucose 171 H POC Capillary Glucose 239 H 262 H Calcium 7.8 L Post-procedural complaints: none Patient Feedback: Patient satisfied with anesthetic care.
[2023-07-16 09:10] LABS: Glucose Point of Care 136 mg/dl (65-105)
--- NOTE | 2023-07-16 09:33 | PM.PNORT ---
Progress Note: A&P Assessment and Plan (1) S/P total hip arthroplasty: Code(s): Z96.649 - Presence of unspecified artificial hip joint Status: Acute Assessment and Plan: POD #1 : Right MONIQUE Continue PT/OT. WBAT. Walker. HIGH FALL RISK. Continue pain control. Ice Hip. Protect skin. DVT prophylaxis with resume Xarelto, no additional DVT prophyalxis per Dr. Briseno. SCDs. Incentive Spirometry Use reviewed. Monitor Dressing. Change prior to discharge. Bowel Regimen. Dispo: Home with Home Health pending progress with PT/OT Plan Reviewed history, exam, radiographs and current labs with attending MD and covering surgeon, Dr. Briseno, who agrees with current plan as indicated above. No further recommendations from Dr. Briseno at this time. Subjective Subjective Date/Time Seen: 07/16/23 09:33 Post Op day: 1 Interval history: POD #1: Right MONIQUE Patient doing very well. Working well with PT/OT. Pain well controlled. Hopeful for d/c home with home health today. No new concerns. Review of Systems Review of Systems: All systems reviewed & are unremarkable except as noted in HPI and below Constitutional: Constitutional: Denies chills, Denies fever(s), Denies headache(s), Denies lethargy and Reports weakness ENT: Denies headache(s) Cardiovascular: Cardiovascular: Denies chest pain, Denies diaphoresis, Denies lightheadedness, Denies palpitations, Denies dyspnea and Denies dyspnea on exertion Respiratory: Respiratory: Denies cough, Denies dyspnea and Denies dyspnea on exertion Gastrointestinal: Gastrointestinal: Denies constipation, Denies diarrhea, Denies nausea and Denies vomiting Genitourinary: Genitourinary: Reports urinary frequency, Denies dysuria and Denies urinary hesitancy Musculoskeletal: Musculoskeletal: Reports joint swelling (Right Hip ) and Reports limited range of motion (Right Hip due to recent surgery ) Neurologic: Denies headache(s) and Reports weakness Endocrine: Endocrine: Denies palpitations Exam Const: General: comfortable and no acute distress Resp: Effort & Inspection: normal respiratory effort Cardio: Rate: regular rate Rhythm: regular rhythm GI: Inspection: non-distended Skin: General skin exam: normal color Other: Incision right hip c/d/i. Surrounding tissue without redness/warmth. Mild swelling consistent with recent surgery. No drainage. Neuro: Cognition (Neuro): normal cognition Speech: normal speech Extrem: Right lower extremity: normal to inspection, normal capillary refill, hip/thigh Details: tenderness Location: of the hip (Thigh soft ) Location: laterally and anteriorly, swelling Location: at the hip, abnormal ROM (limited consistent with recent surgery ) Details: pain with active ROM during and pain with passive ROM during and other (Incision c/d/i. ); no deformity and no unusual warmth, knee Details: normal to inspection; no tenderness and no swelling, lower leg (Negative Thompson's Sign ) Details: normal to inspection and no edema; no tenderness, ankle (+ankle dorsiflexion/plantarflexion) Details: normal to inspection and no edema; no tenderness, no swelling and no ecchymosis and foot Details: normal capillary refill, toes with normal ROM, vascular exam Details: dorsalis pedis pulse present and motor-sensory exam Details: light-touch normal; no tenderness Objective Data Vital Signs Vital Signs: Vital Signs - 24 hr 07/15/23 10:38 07/15/23 10:55 07/15/23 11:10 Temperature 36.1 C L Pulse Rate 90 85 92 Respiratory Rate 10 L 16 12 Blood Pressure 96/61 L 131/95 H 130/60 Pulse Oximetry 100 100 99 Oxygen Delivery Simple Face Mask Simple Face Mask Room Air Oxygen Flow Rate 8 8 07/15/23 11:25 07/15/23 11:40 07/15/23 11:53 Temperature Pulse Rate 82 91 88 Respiratory Rate 12 20 20 Blood Pressure 150/91 H 148/87 H 120/80 Pulse Oximetry 99 98 100 Oxygen Delivery Room Air Room Air Room Air Oxygen Flow Rate 07/15/23 12:05 07/15/23 12:20
[2023-07-16] MEDS: SENNA/DOCUSATE SODIUM TABLET 2 TAB PO (09:54)
[2023-07-16] MEDS: FERROUS SULFATE 325 MG TABLET DR BY MOUTH (09:54)
[2023-07-16] MEDS: metFORMIN HCL 500 MG TABLET PO (09:54)
[2023-07-16] MEDS: MELOXICAM 7.5 MG TABLET PO (09:54)
[2023-07-16] MEDS: glipiZIDE XL 5 MG TABCR 10 MG PO (09:54)
[2023-07-16] MEDS: FAMOTIDINE 20 MG TABLET PO (09:54)
[2023-07-16] MEDS: polyethylene glycoL 3350 17 GM POWD.PACK PO (09:54)
[2023-07-16] MEDS: MAGNESIUM OXIDE 400 MG TABLET PO (09:55)
[2023-07-16] MEDS: allopurinoL 100 MG TABLET PO (09:55)
[2023-07-16 12:27] LABS: Glucose Point of Care 158 mg/dl (65-105)
--- NOTE | 2023-07-16 13:29 | PM.DS ---
DS: Admitting Diagnosis Discharge Date 07/16/2023 Admitting Diagnosis Right Hip DJD DS: Discharge Diagnosis Discharge Diagnosis (1) S/P total hip arthroplasty: Qualifiers: Laterality: right Qualified Code(s): Z96.641 - Presence of right artificial hip joint Code(s): Z96.649 - Presence of unspecified artificial hip joint Status: Acute Assessment and Plan: POD #1 : Right MONIQUE Continue PT/OT. WBAT. Walker. HIGH FALL RISK. Continue pain control. Ice Hip. Protect skin. DVT prophylaxis with resume Xarelto, no additional DVT prophyalxis per Dr. Briseno. SCDs. Incentive Spirometry Use reviewed. Monitor Dressing. Change prior to discharge. Bowel Regimen. Dispo: Home with Home Health pending progress with PT/OT Plan Reviewed history, exam, radiographs and current labs with attending MD and covering surgeon, Dr. Briseno, who agrees with current plan as indicated above. No further recommendations from Dr. Briseno at this time. DS: Summary Hospital Course Reason for hospitalization: Right MONIQUE Hospital Course: 67 year old female admitted s/p Right MONIQUE for postoperative medical management, pain control and mobilization with PT/OT. Patient progressed well with PT/OT. Pain and vitals remained stable throughout. The patient has been cleared to be discharged home with home health at this time. All discharge care instructions reviewed at depth. New medications reviewed. Follow up planned for 3 weeks in the outpatient orthopedic clinic with Dr. Briseno. Dr. Briseno in agreement with safe discharge at this time. Status at Discharge Functional status at discharge: uses cane/walker Overall status at discharge: patient is progressing back to baseline Time Spent with Patient Time attestation: Total time spent providing and/or coordinating discharge services: Exam Const: General: comfortable and no acute distress Resp: Effort & Inspection: normal respiratory effort Cardio: Rate: regular rate Rhythm: regular rhythm GI: Inspection: non-distended Skin: General skin exam: normal color Other: Incision right hip c/d/i. Surrounding tissue without redness/warmth. Mild swelling consistent with recent surgery. No drainage. Neuro: Cognition (Neuro): normal cognition Speech: normal speech Extrem: Right lower extremity: normal to inspection, normal capillary refill, hip/thigh Details: tenderness Location: of the hip (Thigh soft ) Location: laterally and anteriorly, swelling Location: at the hip, abnormal ROM (limited consistent with recent surgery ) Details: pain with active ROM during and pain with passive ROM during and other (Incision c/d/i. ); no deformity and no unusual warmth, knee Details: normal to inspection; no tenderness and no swelling, lower leg (Negative Thompson's Sign ) Details: normal to inspection and no edema; no tenderness, ankle (+ankle dorsiflexion/plantarflexion) Details: normal to inspection and no edema; no tenderness, no swelling and no ecchymosis and foot Details: normal capillary refill, toes with normal ROM, vascular exam Details: dorsalis pedis pulse present and motor-sensory exam Details: light-touch normal; no tenderness DS: Data Data Completed and Pending Labs on day of discharge: Labs from last 24 hours 07/16/23 07/16/23 07/16/23 11:52 08:59 06:38 WBC 10.8 H RBC 2.84 L Hgb 8.5 L Hct 27.5 L MCV 96.8 MCH 29.9 MCHC 30.9 L RDW 13.6 Plt Count 123 L MPV 10.2 Immature Gran % (Auto) 0.6 H Neut % (Auto) 83.2 H Lymph % (Auto) 9.1 L [place] % (Auto) 6.7 Eos % (Auto) 0.1 Baso % (Auto) 0.3 Lymph # (Auto) 0.99 [place] # (Auto) 0.7 H Eos # (Auto) 0.0 Baso # (Auto) 0.0 Abs Immat Gran (auto) 0.06 H Absolute Neuts (auto) 9.0 H Absolute Nucleated RBC 0.0 Nucleated RBC % 0.0 Sodium 136 L Potassium 4.5 Chloride 104 Carbon Dioxide 23 Anion Gap 9 BUN 27 H Creatinine 1.20 H Estim Creat [place]
--- NOTE | 2023-07-16 14:49 | PC.NURSE ---
Dressing change completed. Extra dressing sent with pt.
== END 2023-07-16 14:52 | disposition home health service (06) ==
LOC: ANHSURGERY 05:56 → ANH3MED 11:56
PROVIDERS: PCP Family Medicine; Visit Provider Orthopaedic Surgery
PROC: (CPT 27130; principal; 2023-07-15 07:30)
DX: M16.11 Unilateral primary osteoarthritis, right hip (principal); I10 Essential (primary) hypertension; E78.2 Mixed hyperlipidemia; E11.9 Type 2 diabetes mellitus without complications; E66.9 Obesity, unspecified; Z68.37 Body mass index [BMI] 37.0-37.9, adult; Z79.84 Long term (current) use of oral hypoglycemic drugs; Z79.01 Long term (current) use of anticoagulants; Z79.51 Long term (current) use of inhaled steroids; Z98.890 Other specified postprocedural states; Z87.891 Personal history of nicotine dependence; Z80.1 Family history of malignant neoplasm of trachea, bronchus and lung
CPT/HCPCS: 27130; 36415; 73501; 80048; 80307; 81001; 82040; 82948; 85014; 85018; 85025; 85610; 85730; 86850; 86900; 86901; 87641; 97110; 97116; 97161; 97165; 97530; 97535; A9270; C1713; C1776; J0171; J0690; J1100; J1170; J1200; J1885; J2250; J2270; J2371; J2405; J2704; J2765; J2795; J7030; J7120

== ENCOUNTER 2023-08-21 09:53 | Outpatient (CLI) | payer MEDICARE, SELFPAY ==
[2023-08-21 09:17] LABS: Basophils Absolute Auto 0.1 K/mm3 (0.0-0.1); Basophils Percent Auto 0.9 % (0.2-1.2); Eosinophils Absolute Auto 0.3 K/mm3 (0-0.3); Eosinophils Percent Auto 4.9 % (0-4.4); Hematocrit 33.4 % (37.0-47.0); Hemoglobin 10.2 g/dL (12.0-15.0); Immature Granulocyte Absolute 0.03 K/mm3 (0.00-0.031); Immature Granulocyte Percent A 0.5 % (0-0.5); Lymphocytes Absolute Auto 1.22 K/mm3 (0.9-3.2); Lymphocytes Percent Auto 18.7 % (18.3-44.2); Mean Corpuscular HGB Conc 30.5 g/dl (32-36); Mean Corpuscular Hemoglobin 29.7 pg (26-34); Mean Corpuscular Volume 97.1 fl (80-100); Mean Platelet Volume 10.8 fl (7.4-10.4); Monocytes Absolute Auto 0.5 K/mm3 (0.1-0.6); Monocytes Percent Auto 7.2 % (2.6-8.5); Neutrophils Absolute Auto 4.4 K/mm3 (1.3-6.7); Neutrophils Percent Auto 67.8 % (45.5-73.1); Platelet Count Result 195 k/mm3 (150-375); Red Blood Count 3.44 M/mm3 (4.2-5.4); Red Cell Distribution Width 14.8 % (11.5-14.5); White Blood Count 6.5 K/mm3 (4.5-10.0)
[2023-08-21 09:51] LABS: Vitamin D 25 Hydroxy 55.7 ng/mL
[2023-08-22 07:09] LABS: Alanine Aminotransferase 12 U/L (6-35); Alkaline Phosphatase 102 U/L (38-126); Anion Gap 5 mmol/L (8-16); Aspartate Amino Transferase 29 U/L (14-36); Bilirubin,Total 1.4 mg/dL (0.2-1.3); Blood Urea Nitrogen 16 mg/dL (7-17); Calcium 9.5 mg/dL (8.4-10.2); Carbon Dioxide 28 mmol/L (22-30); Chloride 106 mmol/L (98-107); Cholesterol 136 mg/dL (0-200); Estimated Glomerular Filt Rate > 60; Glucose 155 mg/dL (65-110); HDL Direct 32 mg/dL; Potassium 4.4 mmol/L (3.4-5.0); Sodium 139 mmol/L (137-145); Triglycerides 104 mg/dL (<150)
[2023-08-22 07:10] LABS: Hemoglobin A1C 5.9 % (<5.7)
[2023-08-22 07:25] LABS: LDL Cholesterol Direct 86 mg/dL
[2023-08-28 00:11] LABS: Vitamin D 1,25 (OH)2 Total 40 pg/mL (18-72); Vitamin D2 1,25 (OH)2 <8 pg/mL; Vitamin D3 1,25 (OH)2 40 pg/mL
== END 2023-08-21 09:54 | disposition home or self-care (01) ==
PROVIDERS: Nurse Practitioner Family; PCP Family Medicine; Referring Provider Specialist; Visit Provider Family Medicine
DX: E55.9 Vitamin D deficiency, unspecified (principal); I10 Essential (primary) hypertension; E11.9 Type 2 diabetes mellitus without complications; Z13.220 Encounter for screening for lipoid disorders; Z13.21 Encounter for screening for nutritional disorder; Z13.29 Encounter for screening for other suspected endocrine disorder
CPT/HCPCS: 36415; 80053; 80061; 82306; 82652; 83036; 84443; 85025

== ENCOUNTER 2023-09-10 13:08 | Outpatient (CLI) | payer MEDICARE, SELFPAY ==
--- NOTE | ~2023-09-10 | US_ITS ---
US soft tissue LE LT 09/10/2023 15:40 Indication: Localized pain and swelling adjacent to the left knee Procedure: High-resolution Limited soft tissue ultrasound of the left lower extremity laterally above the knee Comparison: No prior studies for comparison. Findings: Normal heterogeneous soft tissues without discrete solid or cystic mass. Impression: 1: Normal soft tissue ultrasound of the left lower extremity in the area of palpable concern. No disc rete mass. Reviewed, dictated and finalized at location B. Impression: 1: Normal soft tissue ultrasound of the left lower extremity in the area of pal pable concern. No discrete mass.
--- NOTE | ~2023-09-10 | CT_ITS ---
EXAMINATION: CT lung screening DATE: 09/10/2023 13:36 INDICATION: Personal history of nicotine dependence, prior smoker with 60 pack year history TECHNIQUE: Computed tomography (CT) of the chest was performed without intravenous contrast. The dose -length product (DLP) was 181.43 mGy-cm. Automated exposure control and iterative reconstruction tech [employer] were employed. COMPARISON: 11/01/2021 FINDINGS: There is mild emphysema. No suspicious pulmonary nodules are identified. No pleural effusio n or pneumothorax. No pathologically enlarged thoracic lymph nodes are identified. The heart size is normal. There is calcified coronary artery atherosclerosis. There is mild thoracic spondylosis. IMPRESSION: 1. Lung-RADS category 1: Negative. Continue annual screening with noncontrast low-dose chest CT in 12 months. Reviewed, dictated and finalized at location A. IMPRESSION: 1. Lung-RADS category 1: Negative. Continue annual screening with noncontrast l ow-dose chest CT in 12 months.
== END 2023-09-10 13:09 | disposition home or self-care (01) ==
LOC: ANHIMG 13:11
PROVIDERS: PCP Family Medicine; Visit Provider Family Medicine
DX: Z12.2 Encounter for screening for malignant neoplasm of respiratory organs (principal); Z87.891 Personal history of nicotine dependence; R22.42 Localized swelling, mass and lump, left lower limb
CPT/HCPCS: 71271; 76882

== ENCOUNTER 2024-03-02 14:28 | Outpatient (CLI) | payer MEDICARE, SELFPAY ==
[2024-03-02 15:23] LABS: Alanine Aminotransferase 16 U/L (6-35); Albumin Level 4.4 g/dL (3.5-5.1); Alkaline Phosphatase 109 U/L (38-126); Anion Gap 9 mmol/L (4-12); Aspartate Amino Transferase 30 U/L (14-36); Bilirubin,Total 1.7 mg/dL (0.2-1.3); Blood Urea Nitrogen 17 mg/dL (7-17); Carbon Dioxide 28 mmol/L (22-30); Chloride 94 mmol/L (98-107); Estimated Glomerular Filt Rate > 60; Glucose 96 mg/dL (65-110); Potassium 4.2 mmol/L (3.4-5.0); Sodium 131 mmol/L (137-145)
[2024-03-02 15:37] LABS: Iron 60 ug/dL (37-170)
[2024-03-02 15:47] LABS: Percent Iron Saturation 18 % (20-50)
[2024-03-02 15:49] LABS: Creatinine Urine 27.5 mg/dL
[2024-03-02 15:54] LABS: Microalbumin Urine Random 15.4 mg/L (0-16.7)
[2024-03-02 16:29] LABS: Folic Acid > 20.0 ng/mL (2.76->20)
== END 2024-03-02 14:29 | disposition home or self-care (01) ==
LOC: ANHLAB 14:29 → ANHGOSHLAB 14:30 → ANHLAB 14:33
PROVIDERS: PCP Family Medicine; Visit Provider Family Medicine
DX: D64.9 Anemia, unspecified (principal); I10 Essential (primary) hypertension
CPT/HCPCS: 36415; 80053; 82043; 82607; 82746; 83540; 83550

== ENCOUNTER 2024-03-14 14:06 | Outpatient (CLI) | payer MEDICARE, SELFPAY ==
[2024-03-14 14:24] LABS: Basophils Absolute Auto 0.1 K/mm3 (0.0-0.1); Basophils Percent Auto 0.8 % (0.2-1.2); Eosinophils Absolute Auto 0.3 K/mm3 (0-0.3); Eosinophils Percent Auto 3.6 % (0-4.4); Hematocrit 36.8 % (37.0-47.0); Hemoglobin 11.7 g/dL (12.0-15.0); Immature Granulocyte Absolute 0.03 K/mm3 (0.00-0.031); Immature Granulocyte Percent A 0.4 % (0-0.5); Lymphocytes Absolute Auto 1.54 K/mm3 (0.9-3.2); Lymphocytes Percent Auto 21.2 % (18.3-44.2); Mean Corpuscular HGB Conc 31.8 g/dl (32-36); Mean Corpuscular Volume 94.4 fl (80-100); Mean Platelet Volume 10.5 fl (7.4-10.4); Monocytes Absolute Auto 0.6 K/mm3 (0.1-0.6); Monocytes Percent Auto 8.8 % (2.6-8.5); Neutrophils Absolute Auto 4.7 K/mm3 (1.3-6.7); Neutrophils Percent Auto 65.2 % (45.5-73.1); Platelet Count Result 173 k/mm3 (150-375); Red Cell Distribution Width 15.5 % (11.5-14.5); White Blood Count 7.3 K/mm3 (4.5-10.0)
[2024-03-14 14:40] LABS: Hemoglobin A1C 6.5 % (<5.7)
== END 2024-03-14 14:07 | disposition home or self-care (01) ==
PROVIDERS: PCP Family Medicine; Visit Provider Family Medicine
DX: E11.9 Type 2 diabetes mellitus without complications (principal); D64.9 Anemia, unspecified
CPT/HCPCS: 36415; 83036; 85025

== ENCOUNTER 2024-03-21 14:11 | Outpatient (CLI) | payer MEDICARE, SELFPAY ==
--- NOTE | ~2024-03-21 | MM_ITS ---
EXAMINATION: MM screening yusuf BI w sharlene HISTORY: Screening TECHNIQUE: Craniocaudal and mediolateral oblique 3-D tomosynthesis images were obtained and synthetic 2-D images were generated. CAD analysis was submitted and interpreted. COMPARISON: Comparison to multiple prior studies sequentially, with oldest reviewed study dated 09/02. BREAST PARENCHYMAL COMPOSITION: Not Dense: The breasts are almost entirely fatty. FINDINGS: There is no evidence of suspicious mass, calcification, or architectural distortion to sugg est malignancy in either breast. There has been no suspicious interval change. IMPRESSION: 1. No mammographic evidence of malignancy. 2. Recommend routine screening mammography in one year. Reviewed, dictated and finalized at location B.
== END 2024-03-21 14:12 | disposition home or self-care (01) ==
LOC: ANHIMG 14:14
PROVIDERS: PCP Family Medicine; Visit Provider Family Medicine
DX: Z12.31 Encounter for screening mammogram for malignant neoplasm of breast (principal)
CPT/HCPCS: 77063; 77067

== ENCOUNTER 2024-09-09 13:27 | Outpatient (CLI) | payer MEDICARE, SELFPAY ==
--- NOTE | ~2024-09-09 | DEXA_ITS ---
Bone Density Report Name: ONELIA RAMOS Age: 69 Sex: Female Ethnicity: White Date of : 1955 Indication: monitoring treatment; height loss; history of glucocorticoids; Referring Provider: ROSEANNA KAUFMAN Study: Bone densitometry was performed. Exam Date: September 09, 2024 Accession number: [id number] Bone Density: Region BMD T-score Z-score Classification AP Spine(L1, L2, L4) 1.197 1.5 3.6 Normal Femoral Neck (Left) 0.692 -1.4 0.4 Osteopenia Total Hip (Left) 0.988 0.4 1.9 Normal World Health Organization criteria for BMD impression classify patients as: Normal (T-score at or above -1.0), Osteopenia (T-score between -1.0 and -2.5), or Osteoporosis (T-score at or below -2.5). 10-year Fracture Risk: FRAX not reported because: Treated for osteoporosis Previous Exams: Region Exam Age BMD T-score BMD Change BMD Change Date g/cm2 vs Baseline vs Previous AP Spine (L1-L2,L4) 09/09/2024 69 1.197 1.5 0.121 (11.2%)* 0.052 (4.5%)* 03/03/2022 66 1.145 1.0 0.069 (6.4%)* 0.069 (6.4%)* 11/24/2019 64 1.076 0.4 Total Hip(Left) 09/09/2024 69 0.988 0.4 0.086 (9.5%)* 0.040 (4.2%)* 03/03/2022 66 0.948 0.0 0.046 (5.1%)* 0.046 (5.1%)* 11/24/2019 64 0.902 -0.3 *Denotes significance at 95% confidence level, LSC for AP Spine = 0.022 g/cm2, LSC for Total Hip = 0.027 g/cm2 Clinical Information Provided by Patient: Has taken Glucocorticoids Is being treated for osteoporosis Has used the following medications: Calcium Patient maximum height was 64 Menopause Age: 41 No regular weight bearing exercise Drinks caffeinated beverages Onset of menses at age 10 Number of children 0 Impression: The patient has low bone mass, based on the Left Femoral Neck T-score. The patient has risk factors, including: history of glucocorticoid therapy. No significant bone loss was observed. Discussion: PATIENT UNDER TREATMENT WITH NO SIGNIFICANT BMD LOSS SINCE LAST EXAM. In an untreated patient, BMD typically declines with age. A lack of decline or gain is usually a sign that treatment is efficacious and fracture risk is reduced. It is important to ask patients whether they are taking their medications and to encourage continued and appropriate compliance with their osteoporosis therapies to reduce fracture risk. It is also important to review their risk factors and encourage appropriate calcium and vitamin D intakes, exercise, fall prevention and other lifestyle measures. Follow-Up: Consider a repeat BMD and Vertebral Fracture Assessment (VFA) exam in 2 years or sooner if medically necessary, to reassess this patient's status. Reported by: CAROLA on 09/09/2024 2:04:00 PM. Reviewed, dictated and finalized at location Deshawn MCDANIEL
--- OUTSIDE RECORDS SUMMARY | 2024-09-09 13:37 | XMS_ITS | Data Portability ---
Author Organization [facility] JAIRitu Madden Address [address] [place] [address] Care Team Providers Care Video Game Creator Name Role Phone SMITH VAZQUEZ Timber Management Technician Assessment Encounter Date Assessment Date Assessment LastModified by Organization Details LastModified Time 09/02/2017 09/02/2017 Advised patient if she decides on WWE she can make an appointment. Patient verbalized understanding . danielle Not available 09/02/2017 11:25:53 Plan of Treatment Reminders Order Date Submit Date Provider Last Modified By Organization Details Last Modified Time Details Appointments None recorded. Lab pap, IG + HPV, cervical 2014 015 [facility], [address], [address], [place], [address], 5 06:09:23 Referral None recorded. Procedures None recorded. Surgeries None recorded. Imaging MAMMO, screening, bilateral 2017 018 [facility], [address], [place], [address], 8 15:25:58 MAMMO, screening, digital, bilateral 2016 017 [facility], [address], [place], [address], 7 11:28:07 mammogram, screening - [facility], please forward result to Dr. Danelle beasley w [facility], [facility] [address], [address], [place], [address], 6 10:05:52 MAMMO, screening, digital, bilateral 2014 015 [email or web address] Not available 5 17:19:41 Medication Orders None recorded. Patient TargetsNo targets recorded. Patient Instructions Encounter Date Encounter Id Patient Instructions Last Modified By Organization Details Last Modified Time 08/24/2015 [id number] learning about breast cancer screening shania Not available 08/24/2015 17:52:53 08/26/2016 [id number] mammogram: about this test [email or web address] Not available 08/26/2016 11:28:07 09/02/2017 [id number] mammogram: about this test [email or web address] Not available 09/02/2017 11:11:17 Reason for Referral None Reported. Results Created Date Observation Date Name Description Value Unit Range Abnormal Flag Note LastModifiedBy Organization Detail LastModifiedTime 08/23/19 15 08/28/2014 pap, IG + HPV, cervi dorcas diagnosis: COMMEN T NEGAT WENDI FOR INTRA EPITH ELIAL LESIO N AND FATEMEH ROUSSEAU . CELLAlida OCASIO ES ASSOC IATED WITH ATROP HY ARE PRESE NT. CELLAlida OCASIO ES ASSOC IATED WITH INFLA MMATI ON ARE PRESE NT. THIS SPECI MEN WAS RESCR EENED PART OF OUR QUALI TY CONTR OL PROGR AM. Not Available [facility] ([facility]) [address], [place], [address], 08/29/2014 06:09:22 08/23/1908/28/2014 pap, IG + HPV, cervi dorcas specimen adequacy: COMMEN T SATIS FACTO RY FOR EVALU ATION . ENDOC ERVIC AL AND/O R SQUAM OUS METAP LASTI C CELLS (ENDO CERVI DORCAS COMPO NENT) ARE PRESE NT. Not Available [facility] ([facility]) [address], [place], [address], 08/29/2014 06:09:22 08/23/19 15 08/28/2014 pap, IG + HPV, cervi dorcas clinician provided ICD9: JOSHUA Daly V72.3 1 ; LIZZETH NE GYNEC OLOGI DORCAS EXAMI NATIO N Not Available [facility] ([facility]) [address] [place], [address], 08/29/2014 06:09:22 08/23/19 15 08/28/2014 pap, IG + HPV, cervi dorcas performed by: JOSHUA BABIN , CYTOT ECHNO LOGIS T (ASCP ) Not Available [facility] ([facility]) [address] [place], [address], 08/29/2014 06:09:22 08/23/1908/28/2014 pap, IG + HPV, cervi dorcas QC reviewed by: JOSHUA Henderson, SUPER VISOR Y CYTOT ECHNO LOGIS T (ASCP ) Not Available [facility] ([facility]) [address] [place], [address], 08/29/2014 06:09:22 08/23/1908/28/2014 pap, IG + HPV, cervi dorcas . . Not Available [facility] ([facility]) [address] [place], [address], 08/29/2014 06:09:22 08/23/1908/28/2014 pap, IG + HPV, cervi dorcas note: JOSHUA Daly THE PAP SMEAR IS A SCREE YASMEEN TEST DESCAROLE TUBBS TO AID IN THE DETEC TION OF CECE LIGNA NT AND MALIG NANT CONDI TIONS OF THE UTERI NE CERVI X. IT IS NOT A DIAGN OSTIC PROCE DURE AND SHOUL D NOT BE USED THE SOLE MEANS OF DETEC TING CERVI DORCAS CANCE R. BOTH FALSE -POSI TIVE AND FALSE -NEGA TIVE REPOR TS DO OCCUR . . Not Available [facility] ([facility]) [address] [place], [address], 08/29/2014 06:09:22 08/23/1908/28/2014 pap, IG + HPV, cervi dorcas test methodology: COMMEN T THIS LIQUI D BASED THINP REP(R ) PAP TEST WAS RODRÍGUEZ TUBBS WITH THE USE OF AN IMAGE GUIDE Hussein Beck Not Available [facility] ([facility]) [address], [place], [address], 08/29/2014 06:09:22 08/23/19 15 08/28/2014 pap, IG + HPV, cervi dorcas HPV aptima NEGATI VE negati ve THIS TEST DETEC TS FOURT EEN HIGH- RISK HPV TYPES (16/1 8/31/ 33/35 /39/4 5/ 51/52 /56/5 8/59/ 66/68 ) WITHO UT ROCÍOE RENTI ATION . Not Available [facility] ([facility]) [address], [place], [address], 08/29/2014 06:09:22 09/01/19 15 08/29/2014 imagi ng/kacey crandall tic resul t No observ ation record ed. [email or web address] [place] [address] [address], [place], [address], 08/24/2015 15:14:59 09/03/19 16 09/03/2015 dexa PT NAME: RICHARD MILDRED Amanda : 1955 PT SEX/AG E: F/60 PT ACCT NUMBER : [id number] PT MR#: [id number] ROOM/B ED: PT STATUS : REG CLI DATE OF EXAMIN ATION: ORDERRyanne NG PHYSIC BEN: REY Daly Jack ATTEND ING PHYSIC BEN: REY DalyJack DICTAT ING PHYSIC BEN: ELISHA BROWN M.D. 006 EXAMIN ATION: DIGITA L MAMM SCREEN -ERIKA HISTOR Y: Screen ing mammog romero TECHNI QUE: Full field digita l cranio caudal and mediol ateral obliqu e views of both breast s were obtain ed. CAD analys is was submit syeda and interp reted. COMPAR PAT: August 2011, August 2014 BREAST PARENC HYMAL COMPOS ITION: The breast s are almost entire ly fatty. FINDIN GS: There is no eviden ce of suspic ious mass, calcif icatio n, or myron ectura l distor tion to sugges t malign jennie in either breast . There has been no signif icant interv al change . IMPRES ANABELLA: 1. No mammog raphic eviden ce of malign jennie. Recomm end routin e screen ing mammog rachel in one year. BI-RAD S Catego ry 1: Negati ve __ Review ed, dictat ed, and finali zed at Locati on A. __ Electr onical ly signed by: Dr. ELISHA Jackman Date: Time: 09:01 ELISHA BROWN M.D.__ ___ [facility] [address] [place] [address] [facility] (Imaging) [address], [place], [address], 01/08/2017 18:05:26 09/03/19 16 09/03/2015 imagi ng/di agnos tic resul t No observ ation record ed. [email or web address] Not Available 2015 17:29:39 09/09/19 17 09/02/2016 MAMMO , scree yasmeen, bilat eral No observ ation record ed. [email or web address] Not Available 2017 11:12:58 09/05/19 18 09/04/2017 MAMMO , scree yasmeen, bilat eral No observ ation record ed. [address] [facility] [address], [place], [address], 09/07/2017 15:25:58 Result Notes None recorded. Problems Name Problem SNOMED Code Status Onset Date Resolution Date Notes Provider Name and Address Organization Details Recorded Time Gout 80277652 Active 2016 TEJ [place], [place] - [place] 7 10:23:30 Hypertensive disorder 49526073 Active 2016 TEJ [place], [place] [facility] 7 10:23:41 Problem Notes None recorded. Procedures Surgical History Date Name Laterality Status Provider Name and Address Organization Details Recorded Time 7 Most Recent Mammogram completed Kiersten Barnhart MA [place] - [facility] 09/02/2017 11:02:20 5 Date of Last Pap Smear completed Montserrat Beth MA [place] - [facility] 08/24/2015 14:59:20 Dilation and Curettage completed TEJ Mcarth[place] - [place] 09/02/2017 11:03:33 Other completed Kiersten Barnhart MA [place] - [facility] 09/02/2017 11:03:59 Imaging Results Imaging Date Name Status [facility]Modified by [facility] Details LastModified Time 08/29/2014 imaging/diagno stic result completed [email or web address] [facility] [address], [place], [address], 08/24/2015 15:14:59 09/03/2015 dexa completed [facility] wendy (Imaging) [address], [place], [address], 01/08/2017 18:05:26 09/03/2015 imaging/diagno stic result completed [email or web address] Information not available 09/24/2015 17:29:39 09/02/2016 MAMMO, screening, bilateral completed [email or web address] Information not available 09/02/2017 11:12:58 09/04/2017 MAMMO, screening, bilateral completed [email or web address] [place] [address] - [facility] [address], [place], [address], 09/07/2017 15:25:58 Procedure Notes None recorded. Medical Equipment None Reported. Allergies Allergen ID Allergen Name Allergen Category Reaction Reaction Severity Criticality Documentation Date Start Date Code Code System Note Provider Name and Address Organization Details Recorded Time 024761 poison carmelo extract environme nt itching severe Not available 09/02/2017 80092 6 RxNorm Not Available Not Available Not Available 51256 indometha meli medicatio n dizziness moderate Not available 08/22/2014 5781 RxNorm blurr ed visio n Not Available Not Available Not Available 23913 nickel environme nt itching mild Not available 08/26/2016 55169 29 RxNorm Not Available Not Available Not Available Medications Name Sig Start Date Stop Date Status Note LastModified by Organization Details LastModified Time allopurinol 100 mg tablet Take 1 tablet every day by oral route. active Not Available Not Available No t Available bisoprolol 2.5 mg-hydrochlor othiazide 6.25 mg tablet Take 1 tablet every day by oral route. active Not Available Not Available No t Available metformin 1,000 mg tablet Take 1 tablet twice a day by oral route. active Not Available Not Available No t Available Vitals Date Recorded Body weight Body mass index (BMI) Body height Systolic blood pressure Diastolic blood pressure Provider Name and Address Organization Details Last Updated DateTime 09/02/2017 332855.4 6 g 43.6 kg/m2 162.56 cm 136 mm[Hg] 64 mm[Hg] Kiersten Barnhart MA [place] - [facility] 8 10:59:09 Date Recorded Body mass index (BMI) Body height Body weight Systolic blood pressure Diastolic blood pressure Provider Name and Address Organization Details Last Updated DateTime 08/24/2015 42.7 kg/m2 162.56 cm 886660.5 0013 g 132 mm[Hg] 76 mm[Hg] Montserrat Beth MA [facility] 6 15:03:52 Date Recorded Body height Body mass index (BMI) Body weight Systolic blood pressure Diastolic blood pressure Provider Name and Address Organization Details Last Updated DateTime 08/22/2014 162.56 cm 43.1 kg/m2 554325.6 8487 g 164 mm[Hg] 82 mm[Hg] Montserrat Beth MA [facility] 5 10:18:11 Date Recorded Body height Body weight Body mass index (BMI) Systolic blood pressure Diastolic blood pressure Provider Name and Address Organization Details Last Updated DateTime 08/26/2016 163.83 cm 903625.3 5 g 40.9 kg/m2 124 mm[Hg] 70 mm[Hg] Pratibha Adorno MA [facility] 7 10:31:23 Social History Question Answer Notes LastModified by Organizat ion Details LastModified Time Tobacco Smoking Status Former Smoker quit 14 years [facility] 08/26/2016 10:25:26 Do You Have An Advance Directive? No Information not available 08/22/2014 What Is Your Level Of Alcohol Consumption? Occasional Information not available 08/22/2014 Is Blood Transfusion Acceptable In An Emergency? Yes Information not available 08/22/2014 What Is Your Level Of Caffeine Consumption? Occasional Information not available 08/22/2014 How Much Tobacco Do You Chew? None Information not available 08/22/2014 Are You Currently Employed? Yes Information not available 08/22/2014 What Type Of Diet Are You Following? REGULAR Information not available 08/22/2014 Education 12 Information no t available 08/22/2014 Live Alone Or With Others? With Others Information not available 08/22/2014 What Was The Date Of Your Most Recent Tobacco Screening? 09/02/2017 Information not available 01/06/2019 How Many Children Do You Have? 0 Information not available 08/22/2014 Performs Monthly Self-breast Exam? Yes Information not available 08/22/2014 Do You Use Protection During Sex? No Information not available 08/22/2014 What Is Your Relationship Status? Information not available 08/22/2014 Seat Belts Used Routinely Yes Information not available 08/22/2014 Are You Sexually Active? Yes Information not available 08/22/2014 How Much Tobacco Do You Smoke? No Information not available 08/22/2014 General Stress Level Medium Information not available 08/22/2014 Do You Use Sunscreen Routinely? No Information not available 08/22/2014 How Many Years Have You Smoked Tobacco? 30 Information not available 08/22/2014 Sex: Unknown Functional Status Question Answer Note LastModified by Organizat ion Details LastModified Time What is your exercise level? Occasional Information not available 08/22/2014 Mental Status None recorded. Family History Relationship Description Onset Age of this Age Resolved Age Notes LastModified by Organization Details LastModified Time Maternal Grandmother Hypertensive disorder [email or web address] Not available 08/26 10:24:39 Maternal Grandfather Hypertensive disorder [email or web address] Not available 08/26 10:24:47 Medical History Condition Response Coronary Artery Disease N Kidney Cyst N Blood Diseases N Hyperthyroidism N Blood disorders N Blood Transfusion N MRSA N Emphysema N Depression N COPD N Blood Clots N Pneumonia N Premature N Peripheral Arterial Disease N Edema N TIA N Headaches/Migraines N Anxiety Disorder N Obesity N Polyps N Infertility N Acid Reflux (GERD) N Hematuria N Stroke N Neck Injury N Polio N Hospital Admission other than N Neurologic Disorder N Other Sleep Disorders N Rheumatoid Arthritis N Fibromyalgia N Abdominal Aortic Aneurysm Repair N Kidney Disease N Heart Conditions N Heart Disease/Heart Problems N Hospitalizations N Brain Tumors N Acne N Skin Problems N Eating Disorder N Meningitis N Constipation N Tuberculosis N Cerebral Palsy N Myocardial Infarction N Asthma N Substance Abuse N Peripheral Vascular Disease N Vertigo N Sleep Disorder N Cirrhosis N Pulmonary Embolism N Chicken Pox N Hematologic Disease N Flomax Use Past or Present N Anxiety/Depression N Thyroid Disease N Colon Cancer N Lung Disease N Glaucoma N Developmental or Behavioral Disorders N Bipolar N Pacemaker N Diverticulitis/Diverticulosis N Orthopedic Problems N Anesthesia Complications N Orthotics N Head Injury/Concussion N Congenital Anomalies N Aldridge Bite N Chronic Kidney Disease N Endometriosis N Liver Disease N Schizophrenia N Dialysis N Speech Delay N Chronic Obstructive Pulmonary Disease N Parkinson's Disease N Thyroid Problems N GI Problems N Developmental Delay N Anemia N Multiple Sclerosis N Immune System Disorder N Colon Polyps N Heart Attack (MT) N Diabetes N Cardiomyopathy N Blood Transfusions N Heart Problems/Murmur N Eye Trauma N Congestive Heart Failure (CHF) N Valvular Heart Disease N Hyperlipidemia N Double Vision N Abuse/Domestic Violence N Hepatitis B N Lupus N Epilepsy/Seizures N Reflux/GERD N Aneurysm N Heart Disease N Bronchitis N Pre-Eclampsia N Hypertension Y Heart Failure N Other Y Gout N High Blood Pressure Y Atrial Fibrillation N Kidney Stones N Head Trauma/Injury N Congenital Heart Disease N Spine Problems N Gastrointestinal Disease N Lung Mass N Sinusitis N Obstructive Sleep Apnea N Muscle, Joint, or Bone Problems N Autoimmune disease N Vision or Eye Problems N Arthritis N Blood Clot N Cancer N Seasonal allergies N Leg or Foot Ulcers N Raynaud's Disease N Aortic Aneurysm N Arrhythmia N Headaches N Heart Problems N Ambloypia N Ear or Hearing Problems N Hyperparathyroidism N Migraines N Artificial Joints N Kidney or Bladder Problems N NSAID Use N Encephalitis N PTSD N Ulcers N Prostate Hypertrophy N Bleeding Disorder N AIDS/HIV N Urinary Tract Infection N Back Problems N Allergies N Atrial Flutter N GERD/Reflux N Hepatitis N Autism Spectrum Disorder (ASD) N Breast Cancer N Hernia N Hypothyroidism N Breast Problem N Genitourinary Disease N Deep Vein Thrombosis N Varicose Veins N Cystic Fibrosis N Hearing Loss N Developmental Problems N Carotid Disease N Vitamin D Deficiency N ADHD N Bladder or Kidney Problems N High Cholesterol N Meniers N Valvular Abnormalities N Psychiatric/Mental Health Condition N Organ Transplant N Foot Deformity N Allergies/Hayfever N Dyslipidemia N Hyponatremia N Diabetic Eye Disease N Osteoporosis/Osteopenia N Back Pain N Proteinuria N Mental Illness N Neurological Problems N Ovarian Cancer N Bedwetting N Seizures/Epilepsy N Kidney Failure N Ocular trauma N Diverticulitis N Dementia N Sleep Apnea N Mental Problems N Warfarin Management N Osteoporosis N Gynecological History Statement/Question Response Abnormal Pap N STIs/STDs N HPV Vaccine N Age at Menarche 11 Current Control Method Menopause Most Recent Mammogram 09/02/2016 If Post Menopausal, Age at Menopause 49 Sexually Active? Yes Menses Monthly No Date of Last Pap Smear 08/22/2014 Sexual Problems? Yes Desired Control Method None Obstetrics History GPAL:G 0 P 0 0 0 0 Type Value Multiple Births 0 Full Term 0 Induced 0 Spontaneous 0 Premature 0 Living 0 Ectopics 0 Total 0 Past Encounters Encounter ID Performer Location Encounter Start Date Encounter Closed Date Diagnosis/Indication Diagnosis SNOMED-CT Code Diagnosis ICD10 Code Diagnosis Note [id number] Jose Del Valle RN [facility] ([facility]) [address] [place] [address] 0 08/22/2014 09:42:45 08/22/2014 13:14:51 Gynecologic examination 47570205 Screening mammography [id number] Rey Saeed [facility] ([facility]) [address] [place] [phone] 08/24/2015 14:38:10 08/24/2015 16:06:58 Screening mammography 93614967 Z12.31 Screening for malignant neoplasm of breast 209992886 Z12.39 [id number] MD [facility]em[facility] ([facility]) [address] [place] [phone] 08/26/2016 09:44:12 08/27/2016 15:08:51 Screening mammography 39136185 Z12.31 [id number] MD Baldemar [facility] ([facility]) [address] [place] [phone] 09/02/2017 10:35:16 09/02/2017 13:04:12 Screening mammography 37435357 Z12.31 Health Concerns Section Related Observation LastModified by Organization Detai ls LastModified Time None Recorded Concern Status LastModified by Organization Details LastModified Time None Recorded Advance Directives Directive N: Payers Encounter Date Sequence Insurance Name Policy Number Policy Gill Covered Member ID Gill Member ID Guarantor Name 08/24/2015 [facility] Ortiz [id number] Mildred Ortiz 08/26/2016 [facility] Mildred Ortiz [id number] Mildred Ortiz 09/02/2017 [facility]iz [id number] Mildred Ortiz Notes Date Note Type Note Provider Name a sc Address Organization Details Recorded Time 08/24/2015 text/html IBP breast exam Rey Saeed jimmy [facility] 08/24/2015 15:15:22 08/26/2016 text/html for clinical breast exam. she denies any masses or nipple discharge. Smith Vazquez MD Attn: [address]ing,[address] [place], [address], [facility] 08/26/2016 11:05:48 09/02/2017 text/html Patient here for clinical breast exam from [facility]. Patient denies any masses or nipple discharge.Patie nt say she does not want to do WWE since she does not have insurance. Smith Vazquez MD Attn: [address] [place], [address], [facility] 09/02/2017 11:30:11 OBGyn Episode No OBEpisode recorded.
--- OUTSIDE RECORDS SUMMARY | 2024-09-09 13:37 | XMS_ITS | Clinical Summary ---
Author Organization [facility] [employer] Address [address] [place] [address] Care Team Providers Care Independent Distributor Name Role Phone Vincent Marcano Primary Care Provider Unavailhu e Source Comments [facility],non-owned Affiliates and Associated Physician Practices is amultiple site organization consisting of ambulatory clinics and hospital sitesin [place], [place], [place] and [place]. This disclosure is being madepursuant to the Care Everywhere program and may not contain all information available regarding this patient. Last updated 18.[facility] [employer] Social History Tobacco Use Types Packs/Day Years Used Date Smoking Tobacco: Never Assessed Sex and Gender Information Value Date Recorded Sex Assigned at Not on file Gender Identity Not on file Sexual Orientation Not on file Plan of Treatment Health Maintenance Due Date Last Done Comments BONE DENSITY TESTING 1955 COLOGUARD (AGES 45-75) - COL ON CA SCREENING 1955 COLON MONITORING 1955 COLONOSCOPY - COLON CA SCREENING 1954 CT COLONOGRAPHY - COLON CA SCREENING 1955 Colorectal Cancer Screening 1955 FIT - COLON CA SCREENING 1954 FLEX SIG - COLON CA SCREENING 1954 LIPID TESTING 1955 MAMMOGRAM 1955 HEPATITIS C SCREENING 08/05/1972 DTAP/TDAP/TD VACCINES (1 - Tdap) 1973 PNEUMOCOCCAL VACCINE 50+ (1 of 1 - PCV) 2004 ZOSTER VACCINE (1 of 2) 2004 COVID-19 VACCINE ( - 2023-2 5 season) 2024 INFLUENZA VACCINE (#1) 2024 DEPRESSION SCREENING 06/15/2024 Respiratory Syncytial Virus (RSV) Vaccine Pt: or over 60 yrs (1 - 1-dose 75+ series) 2029 HEPATITIS B VACCINE Aged Out No longe r eligible based on patient's age to complete this topic HIB VACCINE Aged Out No longer eligi ble based on patient's age to complete this topic HPV VACCINE Aged Out No longer eligi ble based on patient's age to complete this topic MENINGOCOCCAL (Group B) VACC INE SHARED DECISION-MAKING Aged Out No longer eligibl e based on patient's age to complete this topic MENINGOCOCCAL GROUPS A/C/Y/W VACCINE Aged Out No longer eligible b ased on patient's age to complete this topic Care Teams Independent Distributor Relationship Specialty Start Date End Date Vincent Marcano provider retired [id number] PCP - General 06/01/08
--- OUTSIDE RECORDS SUMMARY | 2024-09-09 13:37 | XMS_ITS | Data Portability ---
Author Organization [facility], [place] Address [address] [place] [address] Assessment No assessment recorded. Plan of Treatment Reminders Order Date Submit Date Provider Last Modified By Organization Details Last Modified Time Details Appointments None recorded. Lab None recorded. Referral None recorded. Procedures None recorded. Surgeries None recorded. Imaging None recorded. Medication Orders clobetasol 0.05 % topical ointment 2022 [address]23 [email or web address] [facility] 2425, [address] [facility], [place], [address], 20:57:50 Patient TargetsNo targets recorded. Patient InstructionsNo instructions recorded. Reason for Referral None Reported. Results Created Date Observation Date Name Description Value Unit Range Abnormal Flag Note LastModifiedBy Organization Detail LastModifiedTime 04/08/2004/08/2023 VAGIN ITIS/ VAGIN OSIS, DNA PROBE raquel sp. detection, direct probe Negati ve negati ve Not Available [facility] (Lab) [address] [facility], [place], [address], 04/09/2023 11:19:32 04/08/2004/08/2023 VAGIN ITIS/ VAGIN OSIS, DNA PROBE gardnerella vag. detection, direct probe Negati ve negati ve Not Available [facility] (Lab) [address] [facility], [place], [address], 04/09/2023 11:19:32 04/08/20 23 04/08/2023 VAGIN ITIS/ VAGIN OSIS, DNA PROBE trichomonas vag. detection, direct probe Negati ve negati ve Not Available [facility] (Lab) [address], [place], [address], 04/09/2023 11:19:32 06/12/20 23 06/12/2023 SURGI DORCAS PATHO LOGY surgical pathology SEE RESULT S BELOW CASE REPOR T: Surgi dorcas Patho logy Repor t Case: [id number] Autho mejia cortes Provi duglas: Fouzia Hurst, MIGDALIA Colle cted: 06/12 1550 Order ing Locat ion: [place] Patho logy Recei laquita: 06/13 0206 Patho logis t: Enoch Swartz rd, MD Speci men: Vulva , Left, vulva bx left labia per conta iner FINAL DIAGN OSIS: Vulva , left labia ; biops y: Super ficia l fragm ent of benig n react balbir squam ous epith elium with hyper granu losis , and overl feliciano car[place] ct ortho kerat osis PAS fungu s stain is negat balbir for funga l organ isms Multi ple addit ional deepe r secti ons are exami siddhartha See comme nt Elect franco martino d by Enoch Swartz rd, MD on 024 at 12:39 PM ----- ----- ----- ----- ----- ----- ----- ----- ----- ----- ----- ----- ----- ----- ----- ----- ----- ---- COMME NT: The speci men consi sts of super ficia lly sampl ed squam ous epith elium with react balbir featu res inclu ding hyper granu losis , and caroline ct ortho kerat osis. The under lying subep ithel ium is not visua lized , there fore patho logy invol ving this area canno t be evalu ated. There is no evide nce of dyspl elsa in the speci men submi tted. If there is clini dorcas suspi cion for tumor the patho logic proce ss invol ving the subep ithel ial area (e.g. liche n scler osus, liche n planu s, invas balbir carci noma, etc.) a rebio psy may be perfo rmed as clini alison indic ated. CLINI DORCAS INFOR MATIO N: n90.8 9 MICRO SCOPI C DESCR IPTIO N: A micro scopi c exami natio n was perfo rmed. GROSS DESCR IPTIO N: A. Vulva , Left. The speci men is label ed with the patie nt's name, naif mason cs and L labia . Recei laquita in forma farida is a 0.2 cm piece of white -levine tissu e. The entir e speci men is submi tted in one casse tte. Gross ed by Gloria yusuf Not Available [facility] (Lab) [address] [facility] [address], [place], [address], 06/17/2023 13:43:53 Result Notes None recorded. Procedures Surgical History Date Name Laterality Status Provider Name and Address Organization Details Recorded Time 07/15/19 24 total replacement of hip completed Dahlia Barrios [facility] 07/31/2023 14:05:06 06/12/20 23 Vulvar Biopsy completed Fouzia Pendleton CNM [address], [place], [address], [facility] 06/12/2023 12:36:50 06/15/18 88 Tubal Ligation completed Dahlia Barrios [facility] 06/12/2023 12:32:16 06/15/18 83 removal of mole of skin by excision completed Dahlia Barrios [facility] 06/12/2023 12:33:20 06/15/18 82 extraction of multiple deciduous teeth completed Dahlia Barrios [facility] 06/12/2023 12:32:09 04/15/19 73 procedure on wrist completed [facility] 06/12/2023 12:32:27 04/15/19 73 procedure on ankle completed [facility] 06/12/2023 12:32:39 06/15/18 72 extraction of wisdom tooth completed [facility] 06/12/2023 12:32:51 06/15/18 70 Dilation [address] Curettage completed [facility] 06/12/2023 12:31:59 Imaging Results None recorded. Procedure Notes None recorded. Medical Equipment None Reported. Allergies Allergen ID Allergen Name Allergen Category Reaction Reaction Severity Criticality Documentation Date Start Date Code Code System Note Provider Name and Address Organization Details Recorded Time 76929 nickel environme nt Not available Not available Not available 04/08/2023 69724 29 RxNorm Oliva [facility] 3 15:17:51 11323 indometha meli medicatio n Not available Not available Not available 04/08/2023 5781 Rxrm [facility] 3 15:17:58 Medications Name Sig Start Date Stop Date Status Note LastModified by Organization Details LastModified Time metformin 500 mg tablet TAKE 1 TABLET BY MOUTH TWICE DAILY active Not Available Not Available No t Available azithromyci n 250 mg tablet TAKE 2 TABLETS BY MOUTH ON DAY 1, AND THEN TAKE 1 TABLET BY MOUTH ONCE A DAY ON DAY 2 THROUGH DAY 5 06/12 completed Not Available Not Available Not Available glipizide ER 10 mg tablet, extended release 24 hr TAKE 1 TABLET BY MOUTH TWICE DAILY active Not Available Not Available No t Available alendronate 70 mg tablet TAKE 1 TABLET BY MOUTH ONCE A WEEK active Not Available Not Available No t Available atenolol 25 mg tablet TAKE 1 TABLET BY MOUTH ONCE DAILY active Not Available Not Available No t Available allopurinol 100 mg tablet TAKE 1 TABLET BY MOUTH ONCE DAILY active Not Available Not Available No t Available triamcinolo ne acetonide 0.1 % topical cream APPLY CREAM EXTERNALL Y TO AFFECTED AREA TWICE DAILY 06/12 completed Not Available Not Available Not Available simvastatin 40 mg tablet TAKE 1 TABLET BY MOUTH EVERY DAY AT BEDTIME active Not Available Not Available No t Available meloxicam 7.5 mg tablet TAKE 1 TABLET BY MOUTH ONCE DAILY active Not Available Not Available No t Available hydrocodone 7.5 mg-acetamin ophen 325 mg tablet TAKE 1 TO 2 TABLETS BY MOUTH EVERY 3 HOURS NEEDED FOR PAIN NO MORE THAN 6 PER 24 HOURS active Not Available Not Available No t Available clobetasol 0.05 % topical ointment APPLY THIN LAYER TOPICALLY TO AFFECTED AREA TWICE DAILY active Not Available Not Available No t Available albuterol sulfate HFA 90 mcg/actuati on aerosol inhaler INHALE 1 PUFF BY MOUTH EVERY 4 HOURS NEEDED FOR SHORTNESS OF BREATH FOR WHEEZING FOR 7 DAYS active Not Available Not Available No t Available ketoconazol e 2 % topical cream APPLY CREAM TOPICALLY TWICE DAILY 06/12 completed Not Available Not Available Not Available Hibiclens 4 % topical liquid APPLY EVERY DAY TO CLEANSE IN AFFECTED AREA IN SHOWER FOR ONE WEEK PRIOR TO SURGERY active Not Available Not Available No t Available mometasone 0.1 % topical solution APPLY 3 ROWS TO SCALP RUB IN, DO NOT RINSE, USE UP TO TWICE DAILY active Not Available Not Available No t Available Xarelto 20 mg tablet TAKE 1 TABLET BY MOUTH IN THE EVENING WITH EVENING MEAL active Not Available Not Available No t Available Paxlovid 300 mg (150 mg x 2)-100 mg tablets in a dose pack TAKE 3 TABLETS TOGETHER (TWO 150 MG NIRMATREL VIR TABLETS AND ONE 100 MG RITONAVIR TABLET) BY MOUTH TWICE DAILY FOR 5 DAYS. 06/12 completed Not Available Not Available Not Available Vitals Date Recorded Body height Body mass index (BMI) Body weight Systolic blood pressure Diastolic blood pressure Provider Name and Address Organization Details Last Updated DateTime 04/08/2023 160.02 cm 37.7 kg/m2 13567.17 g 156 mm[Hg] 92 mm[Hg] Oliva Oneill [facility] 3 15:32:13 Date Recorded Body height Body mass index (BMI) Body weight Systolic blood pressure Diastolic blood pressure Provider Name and Address Organization Details Last Updated DateTime 06/12/2023 160.02 cm 38.8 kg/m2 06039.73 g 159 mm[Hg] 83 mm[Hg] Dahlia Barrios [facility] 3 12:13:13 Date Recorded Body height Body mass index (BMI) Body weight Systolic blood pressure Diastolic blood pressure Provider Name and Address Organization Details Last Updated DateTime 07/31/2023 160.02 cm 38.4 kg/m2 18236.54 g 131 mm[Hg] 64 mm[Hg] Dahlia Barrios [facility] 4 14:04:19 Social History Question Answer Notes LastModified by Organizat ion Details LastModified Time Tobacco Smoking Status Former Smoker Oliva Mai marquez [facility] 04/08/2023 15:32:33 What Is Your Level Of Alcohol Consumption? Occasional [email or web address] Information not available 06/12/2023 Are You Blind Or Do You Have Difficulty Seeing? No [email or web address] Information not available 06/12/2023 What Is Your Level Of Caffeine Consumption? Occasional [email or web address] Information not available 06/12/2023 In The 14 Days Before Symptom Onset, Have You Had Close Contact With A Laboratory-confir med COVID-19 While That Case Was Ill? No [email or web address] Information not available 06/12/2023 In The 14 Days Before Symptom Onset, Have You Had Close Contact With A Person Who Is Under Investigation For COVID-19 While That Person Was Ill? No [email or web address] Information not available 06/12/2023 Have You Been To An Area Known To Be High Risk For COVID-19? No Information not available 06/12/2023 Are You Deaf Or Do You Have Serious Difficulty Hearing? No [email or web address] Information not available 06/12/2023 What Type Of Diet Are You Following? DIABETIC [email or web address] Information not available 06/12/2023 Have You Ever Been Counseled For Unhealthy Alcohol Use? No Information not available 06/12/2023 Do You Use Your Seat Belt Or Car Seat Routinely? Yes [email or web address] Information not available 06/12/2023 Do You Have Smoke And Carbon Monoxide Detectors In Your Home? Yes [email or web address] Information not available 06/12/2023 Do You Feel Stressed (tense, Restless, Nervous, Or Anxious, Or Unable To Sleep At Night)? [id number] [email or web address] Information not available 06/12/2023 Do You Use Any Illicit Or Recreational Drugs? No Information not available 06/12/2023 Do You Use Sunscreen Routinely? Yes [email or web address] Information not available 06/12/2023 Sex: Unknown Functional Status Question Answer Note LastModified by Organizat ion Details LastModified Time Do you have difficulty walking or climbing stairs? No Information not available 06/12/2023 Are you able to walk? YESWOREST [email or web address] Information not available 06/12/2023 Are you able to care for yourself? Yes [email or web address] Information not available 06/12/2023 Do you have difficulty dressing or bathing? No [email or web address] Information not available 06/12/2023 What is your exercise level? Occasional [email or web address] Information not available 06/12/2023 Mental Status None recorded. Family History Nothing Reported. Medical History Condition Response Allergies (Food, seasonal, environmental ) N Other Y Breast Cancer N Drug/Latex Allergies/Reactions Y Blood Transfusion N Dermatologic Disorders Y Lung Disease N Defects or Inherited Disease N Breast Problem N Gestational Diabetes N Hematologic disorders Y Anesthesia Complications N History of STI N Deep Vein Thrombosis N Polycystic ovary syndrome N Anxiety Disorder N Autoimmune disease N Arthritis Y Infertility N Polyps N Acid Reflux (GERD) N History of abnormal pap N Cancer N Stroke N Varicosities N Neurologic/Epilepsy N Endometriosis N High Cholesterol Y Headaches N Fibromyalgia N Kidney Disease N Heart Problems Y Kidney or Bladder Problems N Thyroid Problems N GI Problems N Eating Disorder N Anemia N Art (IVF or FET) N Psychiatric Illness N Ovarian Cancer N Diabetes Y Pulmonary (TB, Asthma) N Hepatitis/Liver Disease N No Past Medical History N Eczema N Urinary Tract Infection N Abuse/Domestic Violence N Asthma N Trauma/Violence N Depression/ depression N Heart Disease Y Pre-Eclampsia N Hypertension Y Osteoporosis Y Thrombophilias N Gynecological History Statement/Question Response Date of DEXA bone scan Date of Last Pap Smear Current Control Method Tubal Ligat ion Date of Last Mammogram Obstetrics History GPAL:G 0 P 0 0 0 0 Type Value Living 0 Total 0 Past Encounters Encounter ID Performer Location Encounter Start Date Encounter Closed Date Diagnosis/Indication Diagnosis SNOMED-CT Code Diagnosis ICD10 Code Diagnosis Note [id number] Fouzia Pendleton CNM [place] [address] [address] 04/08/2023 14:51:21 04/08/2023 16:19:38 Lesion of vulva 660980899 N90.89 suspect lichens, stop listerine start clobetasol f/u biopsy [id number] Fouzia Pendleton CNM [place] [address],[place] [address] 06/12/2023 11:55:07 06/12/2023 12:38:44 Pruritus of vulva 96204236 L29.2 biopsy sentvagina l cultures negative [id number] Fouzia Pendleton CNM [place] [address],[place] [address] 07/31/2023 13:52:27 08/04/2023 07:24:51 Genital lichen sclerosus 552956816 L90.0 use clobetasol as needed, call for appt if needed Health Concerns Section Related Observation LastModified by Organization Detai ls LastModified Time None Recorded Concern Status LastModified by Organization Details LastModified Time None Recorded Advance Directives Directive None Recorded Payers Encounter Date Sequence Insurance Name Policy Number Policy Gill Covered Member ID Gill Member ID Guarantor Name 04/08/2023 1 [employer] [id number] Mildred Ortiz [id number] Mildred Ortiz 06/12/2023 1 [employer] [id number] Mildred Ortiz [id number] Mildred Ortiz 07/31/2023 1 [employer] [id number] Mildred Ortiz [id number] Mildred Ortiz Notes Date Note Type Note Provider Name and Address Organization Details Recorded Time text/html Vaginal/Vulvar ProblemReported bypatient.Notes: yeast infection x 2 years, pcp has tx with rx meds and now applies listerine 2 x day which helps with itchingdiabetic, has not had biopsy or cultures done Fouzia Pendleton CNM [address], [place], [address], [facility] 04/08/2023 16:08:32 3 text/html vulvar itching, f/u, stopped steroid after a few days, uses allergy pill and listerine topicallyplanning hip replacement next monthdiscussed need for biopsy today discussed possible lichens and need for topical steroid, consent signed, discussed bleeding risks and se, pt on blood thinner Fouzia Pendleton CNM [address], [place], [address], [facility] 06/12/2023 12:37:50 4 text/html f/u med check, lichens, pt has resolution of sxs. previously itching x 2 years. discussed group home management and pt will continue to observe Fouzia Pendleton CNM [address], [place], [address], [facility] 07/31/2023 16:55:22 OBGyn Episode No OBEpisode recorded.
--- OUTSIDE RECORDS SUMMARY | 2024-09-09 13:37 | XMS_ITS | Clinical Summary ---
Author Organization [facility] [address] [facility] [address] Address [address] [place] [address] Care Team Providers Care Dental Claims Processor Name Role Phone Marcial Hudson MD Primary Care Provider Allergies Active Allergy Reactions Criticality Noted Date Comments Indomethacin Other (See comments) Low 05/27/2023 Did not feel well Nickel Itching Low 05/27/2023 Medications albuterol HFA (PROVENTIL HFA,VENTOLIN HFA,PROAIR HFA) 90 mcg/actuation inhaler INHALE 1 PUFF BY MOUTH EVERY 4 HOURS NEEDED FOR SHORTNESS OF BREATH FOR WHEEZING FOR 7 DAYS 3 Active alendronate (FOSAMAX) 70 mg tablet 3 Active allopurinoL (ZYLOPRIM) 100 mg tablet Take 1 tablet (100 mg total) by mouth daily 3 Active atenoloL (TENORMIN) 25 mg tablet Take 1 tablet (25 mg total) by mouth daily 3 Active glipiZIDE XL (GLUCOTROL XL) 10 mg 24 hr tablet Take 1 tablet (10 mg total) by mouth 2 (two) times a day 3 Active meloxicam (MOBIC) 7.5 mg tablet Take 1 tablet (7.5 mg total) by mouth daily 3 Active metFORMIN (GLUCOPHAGE) 500 mg tablet Take 1 tablet (500 mg total) by mouth 2 (two) times a day 3 Active Xarelto 20 mg tablet TAKE 1 TABLET BY MOUTH IN THE EVENING WITH EVENING MEAL 3 Active simvastatin (ZOCOR) 40 mg tablet Take 1 tablet (40 mg total) by mouth nightly at bedtime 3 Active calcium carbonate (CALCIUM 600 ORAL) Take by mouth Active ferrous sulfate (iron) 325 mg (65 mg of elemental iron) tabletIndicatio ns:Iron Deficiency Anemia Take 1 tablet (325 mg total) by mouth daily with breakfast Active magnesium oxide (MAG-OX) 250 mg (150.8 mg elemental) tabletIndicatio ns:hypomagnesem ia 1 tablet (250 mg total) daily Active omega-3 fatty acids-fish oil (Fish OiL) 300-500 mg capsule Take by mouth Active multivitamin tabletIndicatio ns:Vitamin Deficiency Prevention Take 1 tablet by mouth Active UNABLE TO FIND Beet root 1000 mg daily Active clobetasoL (TEMOVATE) 0.05 % ointment APPLY THIN LAYER TOPICALLY TO AFFECTED AREA TWICE DAILY Active lisinopriL (PRINIVIL,ZESTR [place]) 10 mg tablet Take 2 tablets (20 mg total) by mouth daily Active Active Problems Problem Noted Date Diagnosed Date Atrial fibrillation 05/27/2023 Social History Tobacco Use Types Packs/Day Years Used Date Smoking Tobacco: Former Cigarettes - 2002 Passive Smoke Exposure: Never Smokeless Tobacco: Never Tobacco Cessation:Counseling Given: Not Answered AUDIT-C Answer Date Recorded Q1: How often do you have a drink containing alc ohol? Monthly or less 05/27/2023 Q2: How many drinks containi ng alcohol do you have on a typical day when you are drinking? 1 or 2 05/27/2023 Q3: How often do you have si x or more drinks on one occasion? 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 Gender Identity Not on file Sexual Orientation Not on file Obstetrics History Last Filed Vital Signs Vital Sign Reading Time Taken Comments Blood Pressure 158/92 02/24/2024 11:09 AM CDT Pulse 87 02/24/2024 11:09 AM CDT Temperature - - Respiratory Rate - - Oxygen Saturation 96% 02/24/2024 11:09 AM CDT Inhaled Oxygen Concentration - - Weight 97.5 kg (215 lb) 02/24/2024 11:09 AM CDT Height 161.3 cm (5' 3.5 ) 02/24/2024 11:09 AM CD T Body Mass Index 37.49 02/24/2024 11:09 AM CDT Plan of Treatment Health Maintenance Due Date Last Done Comments Breast Cancer Screening-Mammogram 1954 Colon Cancer Screening-Colonoscopy 1954 Depression Screening 1954 Fall Risk Assessment 1954 Hepatitis C Screening 1954 Osteoporosis Screening-Bone Density Scan 1954 Well Visit 65+ 2019 Covid-19 Vaccine (7 2023-2 5 season) 2024 03/27/2023, 04/07/2022, 09/26/2021, Additional history exists Influenza Vaccine (#1) 2024 , 04/07/2022, 03/21/2021, Additional history exists DTaP/Tdap/Td Vaccine (2 - Td or Tdap) 02/20/2027 02/20/2017 Zoster Vaccine Completed 10/02/2020, 06/19/2020 Pneumococcal vaccine 65+ Completed 09/12/2021, 03/15 Hepatitis B Screening Completed 10/26/2022, 023 Insurance [employer] MEDICARE GOLD Care Teams Dental Claims Processor Relationship Specialty Start Date End Date Marcial Hudson MD [facility] [facility] [address] [place] [address] PCP - General Family Practice 05/06/23
--- OUTSIDE RECORDS SUMMARY | 2024-09-09 13:37 | XMS_ITS | Clinical Summary ---
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 Gender Identity Not on file Sexual Orientation Not on file Plan of Treatment Health Maintenance Due Date Last Done Comments DEXA Bone Density 1955 Hepatitis C Virus (HCV) Screening 1954 Colonoscopy 1999 Colorectal Cancer Screening 1999 Cologuard 2004 Immunochemical Fecal Occult Blood 2004 Mammogram 2004 Zoster Immunization (1 of 2) 2004 Pneumococcal Immunization (5 0+ years) (2 of 2 - PPSV23) 03/29/2021 03/29/2020 Influenza Immunization (#1) 02/14/202403/15, 04/06/2019, 04/09/2016 SARS-COV-2 Immunization ( - season) 2024 Respiratory Syncytial Virus (RSV) Immunization (Adult) (1 - 1-dose 75+ series) 2029 DTaP/Tdap/Td Immunization Discontinued 02/20/2017 TdaP Immunization Completed 02/20/2017 Pneumococcal Immunization Combined Discontinued 03/29/2020 Hepatitis B Immunization Aged Out No longer eligible based on patient's age to complete this topic Meningococcal Immunization (ACWY) Aged Out No longer eligible based on patient's age to complete this topic Rotavirus Immunization Aged Out No lo nger eligible based on patient's age to complete this topic
--- OUTSIDE RECORDS SUMMARY | 2024-09-09 13:37 | XMS_ITS | Referral Summary ---
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
== END 2024-09-09 13:28 | disposition home or self-care (01) ==
LOC: ANHIMG 13:28
PROVIDERS: PCP Family Medicine; Visit Provider Family Medicine
DX: Z78.0 Asymptomatic menopausal state (principal); M85.852 Other specified disorders of bone density and structure, left thigh
CPT/HCPCS: 77080

== ENCOUNTER 2025-05-01 08:01 | Outpatient (CLI) | payer MEDICARE, SELFPAY ==
[2025-05-01 13:05] LABS: Hematocrit 39.2 % (37.0-47.0); Hemoglobin 12.3 g/dL (12.0-15.0); Immature Granulocyte Percent A 0.2 % (0-0.5); Lymphocytes Absolute Auto 1.28 K/mm3 (0.9-3.2); Mean Corpuscular HGB Conc 31.4 g/dl (32-36); Mean Corpuscular Hemoglobin 29.1 pg (26-34); Mean Corpuscular Volume 92.7 fl (80-100); Nucleated Red Blood Cells Absolute Auto 0.000 K/mm3 (0.0-0.012); Nucleated Red Blood Cells Perc 0.0 % (0.0-0.2); Platelet Count Result 145 k/mm3 (150-375); Red Blood Count 4.23 M/mm3 (4.2-5.4); White Blood Count 8.5 K/mm3 (4.5-10.0)
[2025-05-01 13:20] LABS: Alanine Aminotransferase 17 U/L (6-35); Albumin Level 4.3 g/dL (3.5-5.1); Alkaline Phosphatase 107 U/L (38-126); Anion Gap 9 mmol/L (4-12); Aspartate Amino Transferase 47 U/L (14-36); Bilirubin,Total 1.2 mg/dL (0.2-1.3); Blood Urea Nitrogen 26 mg/dL (7-17); Calcium 9.8 mg/dL (8.4-10.2); Carbon Dioxide 23 mmol/L (22-30); Chloride 107 mmol/L (98-107); Cholesterol 157 mg/dL (0-200); Estimated Glomerular Filt Rate 44; Glucose 163 mg/dL (65-110); HDL Direct 39 mg/dL; Potassium 5.6 mmol/L (3.4-5.0); Sodium 139 mmol/L (137-145); Total Protein 7.7 g/dL (6.3-8.2); Triglycerides 175 mg/dL (<150)
[2025-05-01 13:32] LABS: MALB Creatinine Ratio 15.2 mg/g (0-30)
[2025-05-01 14:18] LABS: Hemoglobin A1C 7.2 % (<5.7)
== END 2025-05-01 08:02 | disposition home or self-care (01) ==
PROVIDERS: PCP Family Medicine; Visit Provider Nurse Practitioner Family
DX: E78.5 Hyperlipidemia, unspecified (principal); I10 Essential (primary) hypertension; E11.9 Type 2 diabetes mellitus without complications; E55.9 Vitamin D deficiency, unspecified
CPT/HCPCS: 36415; 80053; 80061; 82043; 82306; 83036; 85025

== ENCOUNTER 2025-05-08 08:39 | Outpatient (CLI) | payer MEDICARE, SELFPAY ==
--- OUTSIDE RECORDS SUMMARY | 2025-05-08 08:58 | XMS_ITS | Clinical Summary ---
Author Organization [facility] Address [address] [place] [address] Care Team Providers Care Police Manager Name Role Phone Vincent Marcano Primary Care Provider Susu e Source Comments [facility],non-owned Affiliates and Associated Physician Practices is amultiple site organization consisting of ambulatory clinics and hospital sitesin [place], [place], [place] and [place]. This disclosure is being madepursuant to the Care Everywhere program and may not contain all information available regarding this patient. Last updated 18.[facility] 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
--- OUTSIDE RECORDS SUMMARY | 2025-05-08 08:58 | XMS_ITS | Clinical Summary ---
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 Gender Identity Not on file Sexual Orientation Not on file Plan of Treatment Health Maintenance Due Date Last Done Comments Hepatitis C Virus (HCV) Screening 1955 Cologuard 1999 Colonoscopy 1999 Colorectal Cancer Screening 1999 Immunochemical Fecal Occult Blood 1999 Zoster Immunization (1 of 2) 2004 Pneumococcal Immunization (5 0+ years) (2 of 2 - PCV20 or PCV21) 03/29/2021 03/29/2020 Influenza Immunization (#1) 02/13/202503/15, 04/06/2019, 04/09/2016 SARS-COV-2 Immunization (1 - season) 2025 Respiratory Syncytial Virus (RSV) Immunization (Adult) (1 - 1-dose 75+ series) 2029 DTaP/Tdap/Td Immunization Discontinued 02/20/2017 TdaP Immunization Completed 02/20/2017 Pneumococcal Immunization Combined Discontinued 03/29/2020 Hepatitis B Immunization Aged Out No longer eligible based on patient's age to complete this topic Human Papillomavirus (HPV) Immunization Aged Out No longer eligible based on patient's age to complete this topic Meningococcal Immunization (ACWY) Aged Out No longer eligible based on patient's age to complete this topic Rotavirus Immunization Aged Out No lo nger eligible based on patient's age to complete this topic
--- OUTSIDE RECORDS SUMMARY | 2025-05-08 08:58 | XMS_ITS | Clinical Summary ---
Author Organization [facility] [address] Address [address] [place] [address] Care Team Providers Care Two Way Radio Installer Name Role Phone Marcial Hudson MD Primary [...] THE EVENING WITH EVENING MEAL 3 Active calcium carbonate (CALCIUM 600 ORAL) [...] LAYER TOPICALLY TO AFFECTED AREA TWICE DAILY 4 Active lisinopriL (PRINIVIL,ZESTR [place]) 10 mg tablet Take 2 tablets (20 mg total) by mouth daily Active rosuvastatin (CRESTOR) 10 mg tablet Take 1 tablet (10 mg total) by mouth daily 5 Active Active Problems Problem Noted Date Diagnosed Date Atrial fibrillation 05/27/2023 Encounters Date Type Department Care Team Description 03/06/2025 2:15 PM CDT Office Visit [facility] [address] [place] [address] Alexis Quinones MD Permanent atrial fibrillation (HCC) (Primary Dx); Need for lipid screening from Last 3 Months Social History Tobacco Use Types Packs/Day Years Used Date Smoking Tobacco: Former Cigarettes 2 30 1 973 - 2002 Passive Smoke Exposure: Never Smokeless [...] more drinks on one occasion? 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 Gender Identity Not on file Sexual Orientation Not on file Last Filed Vital Signs Vital Sign Reading Time Taken Comments Blood Pressure 150/78 03/06/2025 1:32 PM CDT Pulse 60 03/06/2025 1:32 PM CDT Temperature - - Respiratory Rate - - Oxygen Saturation 99% 03/06/2025 1:32 PM CDT Inhaled Oxygen Concentration - - Weight 101.7 kg (224 lb 1.6 oz) 03/06/2025 1:32 PM CDT Height 161.3 cm (5' 3.5) 03/06/2025 1:32 PM CDT Body Mass Index 39.07 03/06/2025 1:32 PM CDT Plan of Treatment Health Maintenance Due Date Last Done Comments Breast Cancer Screening-Mammogram 1955 Colon Cancer Screening-Colonoscopy 1955 Depression Screening 1955 Fall Risk Assessment 1955 Hepatitis C Screening 1955 Osteoporosis Screening-Bone Density Scan 1955 Well Visit 65+ 2019 Covid-19 Vaccine (2024-2 6 season) 2025 03/27/2023, 04/07/2022, 09/26/2021, Additional history exists Influenza Vaccine (#1) 2025 , 04/07/2022, 03/21/2021, Additional history exists DTaP/Tdap/Td Vaccine (2 - Td or Tdap) 02/20/2027 02/20/2017 Zoster Vaccine Completed 10/02/2020, 06/19/2020 Pneumococcal vaccine 65+ Completed 09/12/2021, 03/15 Hepatitis B Screening Completed 10/26/2022, 023 Procedures Procedure Name Priority Date/Time Associated Diagnosis Comments POCT LIPID PANEL Routine 03/06/2025 2:22 PM CDT Need for lipid screening from Last 3 Months Results * POCT lipid panel (03/06/2025 2:22 PM CDT) Cholesterol, POC 139 <200 MG/DL HDL, POC 45 >=40 mg/dL Triglycerides, POC 126 <=149 mg/dL LDL Cholesterol POC 69 <=129 mg/dL Chol/HDL Ratio, POC 1.5 NONE Non-HDL Cholesterol, POC 94 NONE mg/dL Cholesterol Total, POC 139 30 - 199 mg/dL Capillary blood 03/06/2025 2 :22 PM CDT us Alexis Quinones MD POINT OF CARE TEST ORDER GONZALO Final Result from Last 3 Months Insurance [employer] MEDICARE GOLD Care Teams Two Way Radio Installer Relationship Specialty Start Date End Date Marcial Hudson MD [id number] [facility] [place] [address] PCP - General Family Practice 05/06/23
[2025-05-08 13:16] LABS: Anion Gap 9 mmol/L (4-12); Blood Urea Nitrogen 34 mg/dL (7-17); Calcium 9.6 mg/dL (8.4-10.2); Carbon Dioxide 22 mmol/L (22-30); Chloride 105 mmol/L (98-107); Estimated Glomerular Filt Rate 36; Glucose 145 mg/dL (65-110); Potassium 5.9 mmol/L (3.4-5.0); Sodium 136 mmol/L (137-145)
== END 2025-05-08 08:40 | disposition home or self-care (01) ==
LOC: ANHGOSHLAB 08:40
PROVIDERS: PCP Family Medicine; Visit Provider Nurse Practitioner Family
DX: E87.5 Hyperkalemia (principal)
CPT/HCPCS: 36415; 80048

== ENCOUNTER 2025-05-15 09:10 | Outpatient (CLI) | payer MEDICARE, SELFPAY ==
--- OUTSIDE RECORDS SUMMARY | 2025-05-15 09:51 | XMS_ITS | Clinical Summary ---
Author Organization 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
--- OUTSIDE RECORDS SUMMARY | 2025-05-15 09:51 | XMS_ITS | Clinical Summary ---
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
[2025-05-15 21:50] LABS: Alanine Aminotransferase 15 U/L (6-35); Albumin Level 4.2 g/dL (3.5-5.1); Alkaline Phosphatase 85 U/L (38-126); Anion Gap 6 mmol/L (4-12); Aspartate Amino Transferase 36 U/L (14-36); Bilirubin,Total 1.1 mg/dL (0.2-1.3); Blood Urea Nitrogen 26 mg/dL (7-17); Calcium 9.6 mg/dL (8.4-10.2); Carbon Dioxide 24 mmol/L (22-30); Chloride 109 mmol/L (98-107); Estimated Glomerular Filt Rate 41; Glucose 145 mg/dL (65-110); Potassium 6.1 mmol/L (3.4-5.0); Sodium 139 mmol/L (137-145); Total Protein 7.5 g/dL (6.3-8.2)
== END 2025-05-15 09:11 | disposition home or self-care (01) ==
LOC: ANHGOSHLAB 09:11
PROVIDERS: PCP Family Medicine; Visit Provider Nurse Practitioner Family
DX: E87.5 Hyperkalemia (principal)
CPT/HCPCS: 36415; 80053

== ENCOUNTER 2025-05-26 07:19 | Outpatient (CLI) | payer MEDICARE, SELFPAY ==
[2025-05-26 08:35] LABS: Anion Gap 4 mmol/L (4-12); Blood Urea Nitrogen 27 mg/dL (7-17); Calcium 9.6 mg/dL (8.4-10.2); Carbon Dioxide 25 mmol/L (22-30); Chloride 108 mmol/L (98-107); Estimated Glomerular Filt Rate 42; Glucose 144 mg/dL (65-110); Potassium 5.2 mmol/L (3.4-5.0); Sodium 137 mmol/L (137-145)
== END 2025-05-26 07:20 | disposition home or self-care (01) ==
PROVIDERS: PCP Family Medicine; Visit Provider Nurse Practitioner Family
DX: E87.5 Hyperkalemia (principal)
CPT/HCPCS: 36415; 80048